=== PATIENT | male | born 1960 | race Caucasian/White ===

== ENCOUNTER 2021-09-03 08:45 | Inpatient (IN) | payer OTHER ==
[~2021-09-03] VITALS: Ht 177.8 cm; Wt 79.5 kg
[2021-09-03] MEDS ORDERED: SODIUM CHLORIDE 0.9% 1,000 ML IV ONE (10:15)
[2021-09-03 11:03] LABS: Basophils # (auto) 0 10 ^3/uL (0-0.2); Basophils % (auto) 0.5 % (0.0-2.0); Eosinophils # (auto) 0.1 10 ^3/uL (0-0.8); Eosinophils % (auto) 1.1 % (0.0-7.0); Hematocrit 33.7 % (41.0-53.0); Hemoglobin 11.7 g/dL (13.5-17.5); Lymphocytes # (auto) 0.9 10 ^3/uL (0.4-5.4); Lymphocytes % (auto) 10.4 % (10.0-50.0); Mean Corpuscular Hemoglobin 31.3 pg (28.0-32.0); Mean Corpuscular Hgb Conc. 34.8 g/dL (32.0-36.0); Mean Corpuscular Volume 89.8 fL (80.0-100.0); Monocytes # (auto) 0.6 10 ^3/uL (0-1.3); Monocytes % (auto) 6.4 % (0.0-12.0); Neutrophils # (auto) 7.2 10 ^3/uL (1.6-8.6); Neutrophils % (auto) 81.6 % (37.0-80.0); Nucleated Red Blood Cells % 0.1 %; Red Blood Cells 3.75 10^6/uL (4.5-5.90); Red Cell Distribution Width 13.1 % (11.8-14.3); White Blood Cell 8.9 10^3/uL (4.4-10.8)
[2021-09-03 11:22] LABS: Calcium 9.1 mg/dL (8.5-10.1); Potassium 3.5 mmol/L (3.5-5.1)
[2021-09-03 11:23] LABS: Albumin 3.1 g/dL (3.4-5.0); Magnesium 2.9 mg/dL (1.6-2.6)
[2021-09-03 11:30] LABS: BUN/Creatinine Ratio 9.2; Bilirubin, Total 0.3 mg/dL (0.2-1.0)
[2021-09-03] MEDS ORDERED: NITROGLYCERIN 0.4 MG SL TAB SL PRN (15:15)
[2021-09-03] MEDS ORDERED: BUMETANIDE 2.5mg/10ml (0.25 mg/ml) INJ IV ONE (15:15)
[2021-09-03] MEDS ORDERED: MORPHINE SULFATE INJECTION 2 MG/ML SYRG IV PRN (15:15)
[2021-09-03] MEDS ORDERED: MORPHINE SULFATE INJECTION 2 MG/ML SYRG IV ONE (15:45)
[2021-09-03] MEDS ORDERED: ONDANSETRON HCL 4 MG/2 ML VIAL IV ONE (15:45)
[2021-09-03] MEDS ORDERED: IPRATROPIUM BROM 0.5 MG/2.5ML INH SOL NEB ONE (17:00)
[2021-09-03] MEDS ORDERED: DEXTROSE (50%) 50ML SYRG IV PRN (17:00)
[2021-09-03] MEDS ORDERED: DOCUSATE SOD 100 MG CAP PO PRN (17:00)
[2021-09-03] MEDS ORDERED: NIFEdipine ER 30 MG TAB PO ONE (17:00)
[2021-09-03] MEDS ORDERED: LACTULOSE 20Gm/30ML SOLN PO PRN (17:00)
[2021-09-03] MEDS ORDERED: SUCRALFATE 1 GM/10 ML ORAL SUSP PO ONE (17:00)
[2021-09-03] MEDS ORDERED: PANTOPRAZOLE 40 MG/10 ML VIAL INJ IV ONE (17:00)
[2021-09-03] MEDS: ACCU-CHEK COMFORT CURVE STRIP VI SCH ×2 (17:00→22:00)
[2021-09-03] MEDS ORDERED: FOLIC ACID 1 MG TAB PO ONE (17:00)
[2021-09-03] MEDS ORDERED: ONDANSETRON HCL 4 MG/2 ML VIAL IV PRN (17:00)
[2021-09-03] MEDS ORDERED: MULTIPLE VITAMINS W/ MINERALS TAB PO ONE (17:00)
[2021-09-03] MEDS ORDERED: ACETAMINOPHEN 325 MG TAB PO PRN (17:00)
[2021-09-03] MEDS ORDERED: FERROUS SULFATE 325mg EC TAB PO ONE (17:00)
[2021-09-03] MEDS ORDERED: HYDROcodone-ACET 5/325MG TAB PO ONE (17:00)
[2021-09-03 17:27] LABS: Magnesium 2.6 mg/dL (1.6-2.6); Phosphorus 5.6 mg/dL (2.5-4.90)
[2021-09-03] MEDS: InsuLIN REG 1unit/0.01ml Soln (100units/ml) SC SCH ×2 (17:55→22:00)
[2021-09-03] MEDS ORDERED: IPRATROPIUM BROM 0.5 MG/2.5ML INH SOL NEB SCH (18:00)
[2021-09-03] MEDS: SUCRALFATE 1 GM/10 ML ORAL SUSP PO SCH ×2 (18:23→20:42)
[2021-09-03] MEDS: SEVELAMER 800 MG TAB PO SCH (18:25)
[2021-09-03] MEDS: FERROUS SULFATE 325mg EC TAB PO SCH (18:25)
[2021-09-03] MEDS ORDERED: IPRATROPIUM BROM 0.5 MG/2.5ML INH SOL NEB PRN (18:30)
[2021-09-03 20:00] VITALS: BP 179/94
[2021-09-03] MEDS: LORazepam 0.5 MG TAB PO PRN (20:00)
[2021-09-03] MEDS: levETIRAcetam 500 MG TAB PO SCH (20:42)
[2021-09-03] MEDS: ATORVASTATIN 20 MG TAB PO SCH (20:43)
[2021-09-03] MEDS: MORPHINE SULFATE INJECTION 2 MG/ML SYRG IV PRN (20:44)
[2021-09-03 20:52] LABS: Partial Thromboplastin Time 24.8 sec (23.6-33.0)
[2021-09-03 22:00] VITALS: BP 164/97
[2021-09-03] MEDS ORDERED: ACETYLCYSTEINE 10 %(100MG/ML) SOL 4ML NEB SCH (22:00)
[2021-09-03 23:22] VITALS: BP 159/82
[2021-09-04 00:46] VITALS: BP 159/82
[2021-09-04 04:54] VITALS: BP 158/61
[2021-09-04] MEDS: SUCRALFATE 1 GM/10 ML ORAL SUSP PO SCH ×4 (07:00→22:08)
[2021-09-04] MEDS: InsuLIN REG 1unit/0.01ml Soln (100units/ml) SC SCH ×4 (07:00→22:00)
[2021-09-04] MEDS: ACCU-CHEK COMFORT CURVE STRIP VI SCH ×4 (07:02→21:36)
[2021-09-04] MEDS: HYDROcodone-ACET 5/325MG TAB PO PRN ×3 (07:04→16:45)
[2021-09-04] MEDS: BUMETANIDE 2.5mg/10ml (0.25 mg/ml) INJ IV SCH ×2 (07:05→16:48)
[2021-09-04] MEDS: SEVELAMER 800 MG TAB PO SCH ×3 (08:00→17:20)
[2021-09-04] MEDS: FERROUS SULFATE 325mg EC TAB PO SCH ×3 (08:00→17:20)
[2021-09-04 09:00] VITALS: BP 145/70
[2021-09-04 09:22] LABS: Basophils # (auto) 0 10 ^3/uL (0-0.2); Basophils % (auto) 0.3 % (0.0-2.0); Eosinophils # (auto) 0.1 10 ^3/uL (0-0.8); Eosinophils % (auto) 0.9 % (0.0-7.0); Hematocrit 32.8 % (41.0-53.0); Hemoglobin 11.4 g/dL (13.5-17.5); Lymphocytes # (auto) 1.2 10 ^3/uL (0.4-5.4); Mean Corpuscular Hemoglobin 31.3 pg (28.0-32.0); Mean Corpuscular Hgb Conc. 34.8 g/dL (32.0-36.0); Mean Corpuscular Volume 89.8 fL (80.0-100.0); Monocytes # (auto) 0.6 10 ^3/uL (0-1.3); Monocytes % (auto) 4.8 % (0.0-12.0); Nucleated Red Blood Cells % 0.1 %; Red Blood Cells 3.65 10^6/uL (4.5-5.90); Red Cell Distribution Width 13.2 % (11.8-14.3)
[2021-09-04 09:25] LABS: INR 1.04 (0.9-1.15); Partial Thromboplastin Time 25.5 sec (23.6-33.0)
[2021-09-04 09:33] LABS: Albumin 3.1 g/dL (3.4-5.0); Magnesium 2.4 mg/dL (1.6-2.6); Potassium 3.6 mmol/L (3.5-5.1)
[2021-09-04 09:40] LABS: BUN/Creatinine Ratio 8.8; Bilirubin, Total 0.4 mg/dL (0.2-1.0); CRP High Sensitivity 1.46 mg/dL (< 0.3); Phosphorus 5.4 mg/dL (2.5-4.90); Total Protein 8.2 g/dL (6.4-8.2); Uric Acid 8.1 mg/dL (3.5-7.2)
[2021-09-04] MEDS: FOLIC ACID 1 MG TAB PO SCH (10:17)
[2021-09-04] MEDS: levETIRAcetam 500 MG TAB PO SCH ×2 (10:17→22:08)
[2021-09-04] MEDS: ASPirin 81 mg TAB PO SCH (10:17)
[2021-09-04] MEDS: PANTOPRAZOLE 40 MG/10 ML VIAL INJ IV SCH (10:17)
[2021-09-04] MEDS: THIAMINE HCL 100 MG TAB PO SCH (10:17)
[2021-09-04] MEDS: CHOLECALCIFEROL (VITD3) 2,000 UNIT CAP/TAB PO SCH (10:18)
[2021-09-04] MEDS: CYANOCOBALAMIN 500 MCG TAB PO SCH (10:18)
[2021-09-04] MEDS: ENOXAPARIN SOD 30 MG/0.3 ML SYRINGE SC SCH (10:18)
[2021-09-04] MEDS: NIFEdipine ER 30 MG TAB PO SCH (10:19)
[2021-09-04] MEDS: MULTIPLE VITAMINS W/ MINERALS TAB PO SCH (10:19)
[2021-09-04] MEDS: LORazepam 0.5 MG TAB PO PRN ×2 (11:50→20:25)
[2021-09-04 13:00] VITALS: BP 146/76
[2021-09-04] MEDS: PIPERACILLIN-TAZOB 2.25GM 50 ML IV SCH ×2 (13:00→16:45)
[2021-09-04] MEDS ORDERED: PIPERACILLIN-TAZOB 3.375GM 100 ML IV SCH (14:00)
[2021-09-04 17:00] VITALS: BP 149/72
[2021-09-04] MEDS ORDERED: diphenhdrAMINE HCL 25 MG CAP PO PRN (18:30)
[2021-09-04] MEDS: ATORVASTATIN 20 MG TAB PO SCH (22:08)
[2021-09-05] MEDS: HYDROcodone-ACET 5/325MG TAB PO PRN ×2 (00:23→04:46)
[2021-09-05] MEDS: PIPERACILLIN-TAZOB 2.25GM 50 ML IV SCH ×2 (04:46→19:34)
[2021-09-05 05:00] VITALS: BP 143/65
[2021-09-05] MEDS: ACCU-CHEK COMFORT CURVE STRIP VI SCH ×4 (05:57→21:43)
[2021-09-05] MEDS: InsuLIN REG 1unit/0.01ml Soln (100units/ml) SC SCH ×4 (05:58→21:43)
[2021-09-05] MEDS: BUMETANIDE 2.5mg/10ml (0.25 mg/ml) INJ IV SCH ×2 (06:05→19:36)
[2021-09-05] MEDS: SUCRALFATE 1 GM/10 ML ORAL SUSP PO SCH ×4 (06:05→21:50)
[2021-09-05 08:30] VITALS: BP 132/76
[2021-09-05] MEDS ORDERED: PIPERACILLIN-TAZOB 2.25GM 0.75 GM in D5W 5% 50 ML IV SCH (09:00)
[2021-09-05] MEDS ORDERED: SODIUM CHL 0.9% 1000 ML BAG XX ONE (11:30)
[2021-09-05] MEDS: PANTOPRAZOLE 40 MG/10 ML VIAL INJ IV SCH (11:31)
[2021-09-05] MEDS: FERROUS SULFATE 325mg EC TAB PO SCH ×3 (11:31→19:36)
[2021-09-05] MEDS: SEVELAMER 800 MG TAB PO SCH ×3 (11:31→19:36)
[2021-09-05] MEDS: FOLIC ACID 1 MG TAB PO SCH (11:31)
[2021-09-05] MEDS: ASPirin 81 mg TAB PO SCH (11:31)
[2021-09-05] MEDS: levETIRAcetam 500 MG TAB PO SCH ×2 (11:32→21:50)
[2021-09-05] MEDS: THIAMINE HCL 100 MG TAB PO SCH (11:32)
[2021-09-05] MEDS: MULTIPLE VITAMINS W/ MINERALS TAB PO SCH (11:32)
[2021-09-05] MEDS: CYANOCOBALAMIN 500 MCG TAB PO SCH (11:33)
[2021-09-05] MEDS: ENOXAPARIN SOD 30 MG/0.3 ML SYRINGE SC SCH (11:33)
[2021-09-05] MEDS: CHOLECALCIFEROL (VITD3) 2,000 UNIT CAP/TAB PO SCH (11:33)
[2021-09-05] MEDS: NIFEdipine ER 30 MG TAB PO SCH (11:33)
[2021-09-05 12:30] VITALS: BP 161/84
[2021-09-05 16:46] LABS: Hepatitis A Ab IgM Negative; Hepatitis B Core IgM Negative
[2021-09-05 16:50] LABS: Hepatitis C Antibody Positive (Negative)
[2021-09-05 17:00] VITALS: BP 156/81
[2021-09-05] MEDS ORDERED: LORazepam 2MG/ML-1ML VIAL IV PRN (21:15)
[2021-09-05] MEDS: ATORVASTATIN 20 MG TAB PO SCH (21:50)
[2021-09-05 22:00] VITALS: BP 148/80
[2021-09-06 05:00] VITALS: BP 145/67
[2021-09-06] MEDS: ACCU-CHEK COMFORT CURVE STRIP VI SCH ×4 (06:11→21:52)
[2021-09-06] MEDS: InsuLIN REG 1unit/0.01ml Soln (100units/ml) SC SCH ×4 (06:12→21:51)
[2021-09-06] MEDS: BUMETANIDE 2.5mg/10ml (0.25 mg/ml) INJ IV SCH ×2 (06:47→17:40)
[2021-09-06] MEDS: SUCRALFATE 1 GM/10 ML ORAL SUSP PO SCH ×4 (06:47→21:51)
[2021-09-06] MEDS: PIPERACILLIN-TAZOB 2.25GM 50 ML IV SCH ×2 (06:47→16:50)
[2021-09-06 07:53] LABS: Basophils # (auto) 0.1 10 ^3/uL (0-0.2); Basophils % (auto) 0.8 % (0.0-2.0); Eosinophils # (auto) 0.1 10 ^3/uL (0-0.8); Eosinophils % (auto) 1.2 % (0.0-7.0); Hemoglobin 11.5 g/dL (13.5-17.5); Lymphocytes # (auto) 1.2 10 ^3/uL (0.4-5.4); Lymphocytes % (auto) 13.9 % (10.0-50.0); Mean Corpuscular Hemoglobin 31.1 pg (28.0-32.0); Mean Corpuscular Hgb Conc. 34.8 g/dL (32.0-36.0); Mean Corpuscular Volume 89.6 fL (80.0-100.0); Monocytes # (auto) 0.6 10 ^3/uL (0-1.3); Neutrophils # (auto) 6.8 10 ^3/uL (1.6-8.6); Neutrophils % (auto) 77.1 % (37.0-80.0); Nucleated Red Blood Cells % 0.1 %; Red Blood Cells 3.69 10^6/uL (4.5-5.90); Red Cell Distribution Width 13.1 % (11.8-14.3); White Blood Cell 8.8 10^3/uL (4.4-10.8)
[2021-09-06] MEDS: FERROUS SULFATE 325mg EC TAB PO SCH ×3 (08:00→17:40)
[2021-09-06] MEDS: SEVELAMER 800 MG TAB PO SCH ×3 (08:00→17:40)
[2021-09-06 08:06] LABS: Calcium 9.1 mg/dL (8.5-10.1)
[2021-09-06 08:10] LABS: BUN/Creatinine Ratio 7.2
[2021-09-06 09:00] VITALS: BP 182/87
[2021-09-06] MEDS: ASPirin 81 mg TAB PO SCH (10:16)
[2021-09-06] MEDS: MULTIPLE VITAMINS W/ MINERALS TAB PO SCH (10:16)
[2021-09-06] MEDS: THIAMINE HCL 100 MG TAB PO SCH (10:16)
[2021-09-06] MEDS: PANTOPRAZOLE 40 MG/10 ML VIAL INJ IV SCH (10:16)
[2021-09-06] MEDS: FOLIC ACID 1 MG TAB PO SCH (10:16)
[2021-09-06] MEDS: levETIRAcetam 500 MG TAB PO SCH ×2 (10:16→21:51)
[2021-09-06] MEDS: CYANOCOBALAMIN 500 MCG TAB PO SCH (10:17)
[2021-09-06] MEDS: NIFEdipine ER 30 MG TAB PO SCH (10:17)
[2021-09-06] MEDS: CHOLECALCIFEROL (VITD3) 2,000 UNIT CAP/TAB PO SCH (10:17)
[2021-09-06] MEDS: ENOXAPARIN SOD 30 MG/0.3 ML SYRINGE SC SCH (10:17)
[2021-09-06] MEDS ORDERED: LACTULOSE 20Gm/30ML SOLN PO ONE (12:30)
[2021-09-06 13:00] VITALS: BP 189/99
[2021-09-06] MEDS: hydrALAZINE HCL 20 MG/ML VL IV PRN (13:49)
[2021-09-06 16:13] LABS: Folate (Folic Acid) > 24.0 ng/mL (5.38-24)
[2021-09-06] MEDS: MORPHINE SULFATE INJECTION 2 MG/ML SYRG IV PRN (21:39)
[2021-09-06] MEDS: ATORVASTATIN 20 MG TAB PO SCH (21:51)
[2021-09-06 22:24] VITALS: BP 156/88
[2021-09-06 22:25] VITALS: BP 156/88
[2021-09-07] VITALS (7 sets, daily range): BP systolic 149–171; BP diastolic 76–87
[2021-09-07] MEDS: hydrALAZINE HCL 20 MG/ML VL IV PRN (05:08)
[2021-09-07] MEDS: PIPERACILLIN-TAZOB 2.25GM 50 ML IV SCH ×2 (05:12→18:12)
[2021-09-07] MEDS: BUMETANIDE 2.5mg/10ml (0.25 mg/ml) INJ IV SCH ×2 (06:07→18:12)
[2021-09-07] MEDS: InsuLIN REG 1unit/0.01ml Soln (100units/ml) SC SCH ×4 (06:50→21:35)
[2021-09-07] MEDS: SUCRALFATE 1 GM/10 ML ORAL SUSP PO SCH ×4 (06:50→21:19)
[2021-09-07] MEDS: ACCU-CHEK COMFORT CURVE STRIP VI SCH ×4 (06:52→21:34)
[2021-09-07 07:08] LABS: Anion Gap 13 (5-15); Blood Urea Nitrogen 39 mg/dL (7-18); Carbon Dioxide 21 mmol/L (21-32); Chloride 99 mmol/L (98-107); Glucose 104 mg/dL (74-106); Potassium 3.6 mmol/L (3.5-5.1); Sodium 133 mmol/L (136-145)
[2021-09-07 07:10] LABS: BUN/Creatinine Ratio 7.1; GFR African American 14 mL/min; GFR Non-African American 11 mL/min
[2021-09-07] MEDS: FERROUS SULFATE 325mg EC TAB PO SCH ×3 (08:39→18:11)
[2021-09-07] MEDS: SEVELAMER 800 MG TAB PO SCH ×3 (08:39→18:11)
[2021-09-07] MEDS: HYDROcodone-ACET 5/325MG TAB PO PRN (08:40)
[2021-09-07] MEDS: PANTOPRAZOLE 40 MG/10 ML VIAL INJ IV SCH (08:41)
[2021-09-07] MEDS ORDERED: HALOPERIDOL LACTATE 5 MG/ML INJ VIAL IM PRN (09:15)
[2021-09-07] MEDS: ASPirin 81 mg TAB PO SCH (10:46)
[2021-09-07] MEDS: FOLIC ACID 1 MG TAB PO SCH (10:46)
[2021-09-07] MEDS: THIAMINE HCL 100 MG TAB PO SCH (10:47)
[2021-09-07] MEDS: levETIRAcetam 500 MG TAB PO SCH ×2 (10:48→21:20)
[2021-09-07] MEDS: MULTIPLE VITAMINS W/ MINERALS TAB PO SCH (10:48)
[2021-09-07] MEDS: CYANOCOBALAMIN 500 MCG TAB PO SCH (10:49)
[2021-09-07] MEDS: CHOLECALCIFEROL (VITD3) 2,000 UNIT CAP/TAB PO SCH (10:49)
[2021-09-07] MEDS: NIFEdipine ER 30 MG TAB PO SCH (10:49)
[2021-09-07] MEDS: ENOXAPARIN SOD 30 MG/0.3 ML SYRINGE SC SCH (10:50)
[2021-09-07] MEDS: LACTULOSE 20Gm/30ML SOLN PO SCH (10:51)
[2021-09-07] MEDS: ATORVASTATIN 20 MG TAB PO SCH (21:20)
[2021-09-08] MEDS: LORazepam 0.5 MG TAB PO PRN (03:36)
[2021-09-08] MEDS: PIPERACILLIN-TAZOB 2.25GM 50 ML IV SCH (05:20)
[2021-09-08] MEDS: BUMETANIDE 2.5mg/10ml (0.25 mg/ml) INJ IV SCH (05:27)
[2021-09-08] MEDS: SUCRALFATE 1 GM/10 ML ORAL SUSP PO SCH ×2 (06:59→11:30)
[2021-09-08] MEDS: InsuLIN REG 1unit/0.01ml Soln (100units/ml) SC SCH ×2 (07:00→11:30)
[2021-09-08] MEDS: ACCU-CHEK COMFORT CURVE STRIP VI SCH ×2 (07:09→11:40)
[2021-09-08 09:00] VITALS: BP 146/61
[2021-09-08] MEDS: NIFEdipine ER 30 MG TAB PO SCH (10:00)
[2021-09-08] MEDS: LACTULOSE 20Gm/30ML SOLN PO SCH (10:00)
[2021-09-08] MEDS: FERROUS SULFATE 325mg EC TAB PO SCH ×2 (10:07→12:00)
[2021-09-08] MEDS: ASPirin 81 mg TAB PO SCH (10:08)
[2021-09-08] MEDS: SEVELAMER 800 MG TAB PO SCH ×2 (10:08→12:00)
[2021-09-08] MEDS: FOLIC ACID 1 MG TAB PO SCH (10:08)
[2021-09-08] MEDS: PANTOPRAZOLE 40 MG/10 ML VIAL INJ IV SCH (10:08)
[2021-09-08] MEDS: levETIRAcetam 500 MG TAB PO SCH (10:09)
[2021-09-08] MEDS: THIAMINE HCL 100 MG TAB PO SCH (10:09)
[2021-09-08] MEDS: MULTIPLE VITAMINS W/ MINERALS TAB PO SCH (10:09)
[2021-09-08] MEDS: CHOLECALCIFEROL (VITD3) 2,000 UNIT CAP/TAB PO SCH (10:10)
[2021-09-08] MEDS: CYANOCOBALAMIN 500 MCG TAB PO SCH (10:10)
[2021-09-08] MEDS: ENOXAPARIN SOD 30 MG/0.3 ML SYRINGE SC SCH (10:11)
[2021-09-08] MEDS: HYDROcodone-ACET 5/325MG TAB PO PRN (10:12)
[2021-09-08 10:17] LABS: Potassium 3.4 mmol/L (3.5-5.1)
[2021-09-08 10:35] LABS: BUN/Creatinine Ratio 6.9; Calcium 8.9 mg/dL (8.5-10.1)
== END 2021-09-08 16:25 | DRG 682 ==
LOC: EDBD 08:45 → ER 08:45 → TELE-WESTW 15:04
PROVIDERS: ADMIT Hospitalist; ATTEND Internal Medicine
PROC: 05H933Z Insertion of Infusion Device into Right Brachial Vein, Percutaneous Approach (ICD-10-PCS; 2021-09-03)
PROC: B54MZZA Ultrasonography of Right Upper Extremity Veins, Guidance (ICD-10-PCS; 2021-09-03)
PROC: 5A1D70Z Performance of Urinary Filtration, Intermittent, Less than 6 Hours Per Day (ICD-10-PCS; principal; 2021-09-05)
PROC: 05H933Z Insertion of Infusion Device into Right Brachial Vein, Percutaneous Approach (ICD-10-PCS; 2021-09-05)
PROC: B54MZZA Ultrasonography of Right Upper Extremity Veins, Guidance (ICD-10-PCS; 2021-09-05)
PROC: 5A1D70Z Performance of Urinary Filtration, Intermittent, Less than 6 Hours Per Day (ICD-10-PCS; 2021-09-08)
DX: I12.0 Hypertensive chronic kidney disease with stage 5 chronic kidney disease or end stage renal disease (principal); G93.41 Metabolic encephalopathy; N18.6 End stage renal disease; E44.1 Mild protein-calorie malnutrition; I16.9 Hypertensive crisis, unspecified; I69.354 Hemiplegia and hemiparesis following cerebral infarction affecting left non-dominant side; D63.8 Anemia in other chronic diseases classified elsewhere; D69.6 Thrombocytopenia, unspecified; B19.20 Unspecified viral hepatitis C without hepatic coma; D63.1 Anemia in chronic kidney disease; E21.3 Hyperparathyroidism, unspecified; Z20.822 Contact with and (suspected) exposure to COVID-19; F17.210 Nicotine dependence, cigarettes, uncomplicated; E11.22 Type 2 diabetes mellitus with diabetic chronic kidney disease; E66.01 Morbid (severe) obesity due to excess calories; Z68.26 Body mass index [BMI] 26.0-26.9, adult; E78.5 Hyperlipidemia, unspecified; F32.9 Major depressive disorder, single episode, unspecified; G40.909 Epilepsy, unspecified, not intractable, without status epilepticus; J44.9 Chronic obstructive pulmonary disease, unspecified; K21.9 Gastro-esophageal reflux disease without esophagitis; K29.70 Gastritis, unspecified, without bleeding; K59.00 Constipation, unspecified; M89.8X9 Other specified disorders of bone, unspecified site; Z99.2 Dependence on renal dialysis; Z79.82 Long term (current) use of aspirin; Z79.899 Other long term (current) drug therapy; Z89.512 Acquired absence of left leg below knee; Z89.612 Acquired absence of left leg above knee
CPT/HCPCS: 36415; 71045; 80048; 80053; 80061; 80074; 82607; 82728; 82746; 82962; 83036; 83615; 83690; 83735; 83880; 83970; 84100; 84443; 84484; 84550; 85025; 85379; 85610; 85652; 85730; 86141; 87040; 90935; 93005; 96361; 96374; 96375; C9113; G0378; J1642; J1815; J2405; J2543

== ENCOUNTER 2021-09-11 20:31 | Inpatient (IN) | payer OTHER ==
[~2021-09-11] VITALS: Ht 177.8 cm; Wt 75.7 kg
[2021-09-11] MEDS ORDERED: ONDANSETRON HCL 4 MG/2 ML VIAL IV ONE (21:15)
[2021-09-11] MEDS ORDERED: MORPHINE SULFATE 4 MG/ML SYR/VIAL IV ONE (21:15)
[2021-09-11 22:09] LABS: Basophils # (auto) 0.1 10 ^3/uL (0-0.2); Basophils % (auto) 0.5 % (0.0-2.0); Eosinophils # (auto) 0.2 10 ^3/uL (0-0.8); Eosinophils % (auto) 1.4 % (0.0-7.0); Hematocrit 33.6 % (41.0-53.0); Hemoglobin 11.4 g/dL (13.5-17.5); Lymphocytes % (auto) 8.8 % (10.0-50.0); Mean Corpuscular Hemoglobin 30.6 pg (28.0-32.0); Mean Corpuscular Hgb Conc. 33.9 g/dL (32.0-36.0); Mean Corpuscular Volume 90.1 fL (80.0-100.0); Monocytes # (auto) 0.5 10 ^3/uL (0-1.3); Monocytes % (auto) 4.5 % (0.0-12.0); Neutrophils % (auto) 84.8 % (37.0-80.0); Red Blood Cells 3.73 10^6/uL (4.5-5.90); White Blood Cell 11.8 10^3/uL (4.4-10.8)
[2021-09-11 22:44] LABS: Albumin 3.1 g/dL (3.4-5.0); BUN/Creatinine Ratio 6.8; Potassium 3.2 mmol/L (3.5-5.1)
[2021-09-11 22:49] LABS: Bilirubin, Total 0.2 mg/dL (0.2-1.0); Total Protein 7.8 g/dL (6.4-8.2)
[2021-09-11] MEDS ORDERED: DEXTROSE (50%) 50ML SYRG IV PRN (23:15)
[2021-09-11] MEDS ORDERED: MORPHINE SULFATE INJECTION 2 MG/ML SYRG IV PRN (23:15)
[2021-09-11] MEDS ORDERED: ONDANSETRON HCL 4 MG/2 ML VIAL IV PRN (23:15)
[2021-09-11] MEDS ORDERED: NITROGLYCERIN 0.4 MG SL TAB SL PRN (23:15)
[2021-09-12] MEDS: ACCU-CHEK COMFORT CURVE STRIP VI SCH ×5 (00:01→21:36)
[2021-09-12] MEDS: ATORVASTATIN 20 MG TAB PO SCH ×2 (00:05→21:33)
[2021-09-12] MEDS: InsuLIN REG 1unit/0.01ml Soln (100units/ml) SC SCH ×5 (00:06→21:26)
[2021-09-12] MEDS: levETIRAcetam 500 MG TAB PO SCH ×3 (00:06→21:33)
[2021-09-12 01:28] LABS: BUN/Creatinine Ratio 7.3; Calcium 9.2 mg/dL (8.5-10.1); Potassium 3.2 mmol/L (3.5-5.1)
[2021-09-12] MEDS: SEVELAMER 800 MG TAB PO SCH ×3 (08:12→16:43)
[2021-09-12 09:22] LABS: Basophils # (auto) 0.1 10 ^3/uL (0-0.2); Eosinophils # (auto) 0.2 10 ^3/uL (0-0.8); Eosinophils % (auto) 2.2 % (0.0-7.0); Hematocrit 32.9 % (41.0-53.0); Hemoglobin 11.5 g/dL (13.5-17.5); Lymphocytes # (auto) 1.3 10 ^3/uL (0.4-5.4); Lymphocytes % (auto) 11.8 % (10.0-50.0); Mean Corpuscular Hemoglobin 31.6 pg (28.0-32.0); Mean Corpuscular Hgb Conc. 35.1 g/dL (32.0-36.0); Mean Corpuscular Volume 90.1 fL (80.0-100.0); Monocytes # (auto) 0.7 10 ^3/uL (0-1.3); Monocytes % (auto) 5.9 % (0.0-12.0); Neutrophils # (auto) 8.8 10 ^3/uL (1.6-8.6); Neutrophils % (auto) 79.1 % (37.0-80.0); Nucleated Red Blood Cells % 0.1 %; Red Blood Cells 3.65 10^6/uL (4.5-5.90); White Blood Cell 11.1 10^3/uL (4.4-10.8)
[2021-09-12 10:20] VITALS: BP 151/80
[2021-09-12] MEDS: ASPirin 81 mg TAB PO SCH (11:22)
[2021-09-12] MEDS: FOLIC ACID 1 MG TAB PO SCH (11:22)
[2021-09-12] MEDS: FUROSEMIDE 40 MG TAB PO SCH (11:23)
[2021-09-12] MEDS: amLODIPine BESYLATE 5 MG TAB PO SCH (11:24)
[2021-09-12 11:26] VITALS: BP 151/80
[2021-09-12 12:30] VITALS: BP 174/92
[2021-09-12] MEDS: cloNIDine HCL 0.1 MG TAB PO PRN (13:51)
[2021-09-12 16:54] VITALS: BP 139/82
[2021-09-12] MEDS: ACETAMINOPHEN 325 MG TAB PO PRN (20:15)
[2021-09-12] MEDS: TEMAZEPAM 15 MG CAP PO PRN (21:36)
[2021-09-12 22:00] VITALS: BP 181/74
[2021-09-13] MEDS: cloNIDine HCL 0.1 MG TAB PO PRN (01:55)
[2021-09-13 05:00] VITALS: BP 162/75
[2021-09-13 06:04] LABS: Basophils # (auto) 0 10 ^3/uL (0-0.2); Basophils % (auto) 0.5 % (0.0-2.0); Eosinophils # (auto) 0.2 10 ^3/uL (0-0.8); Eosinophils % (auto) 1.9 % (0.0-7.0); Hematocrit 31.5 % (41.0-53.0); Hemoglobin 10.7 g/dL (13.5-17.5); Lymphocytes # (auto) 1.5 10 ^3/uL (0.4-5.4); Lymphocytes % (auto) 17.9 % (10.0-50.0); Mean Corpuscular Volume 91.1 fL (80.0-100.0); Monocytes # (auto) 0.6 10 ^3/uL (0-1.3); Monocytes % (auto) 6.9 % (0.0-12.0); Neutrophils # (auto) 6.1 10 ^3/uL (1.6-8.6); Neutrophils % (auto) 72.8 % (37.0-80.0); Red Blood Cells 3.45 10^6/uL (4.5-5.90); White Blood Cell 8.3 10^3/uL (4.4-10.8)
[2021-09-13] MEDS: ACCU-CHEK COMFORT CURVE STRIP VI SCH ×4 (06:18→21:27)
[2021-09-13] MEDS: InsuLIN REG 1unit/0.01ml Soln (100units/ml) SC SCH ×4 (06:18→21:34)
[2021-09-13 06:36] LABS: BUN/Creatinine Ratio 7.8; Calcium 8.6 mg/dL (8.5-10.1); Potassium 3.1 mmol/L (3.5-5.1)
[2021-09-13] MEDS ORDERED: SODIUM CHL 0.9% 1000 ML BAG XX ONE (07:00)
[2021-09-13] MEDS: SEVELAMER 800 MG TAB PO SCH ×3 (08:00→17:18)
[2021-09-13] MEDS: ACETAMINOPHEN 325 MG TAB PO PRN ×3 (08:39→22:08)
[2021-09-13 09:00] VITALS: BP 135/75
[2021-09-13] MEDS ORDERED: POTASSIUM CHL 20 Meq TABLET PO ONE (11:15)
[2021-09-13] MEDS ORDERED: ADENOSINE 61 MG in GIVE UN-DILUTED 0 ML IV STA (11:24)
[2021-09-13 12:00] VITALS: BP 168/85
[2021-09-13] MEDS: levETIRAcetam 500 MG TAB PO SCH ×2 (12:52→21:27)
[2021-09-13] MEDS: ASPirin 81 mg TAB PO SCH (12:52)
[2021-09-13] MEDS: FOLIC ACID 1 MG TAB PO SCH (12:52)
[2021-09-13] MEDS: FUROSEMIDE 40 MG TAB PO SCH (12:56)
[2021-09-13] MEDS: amLODIPine BESYLATE 5 MG TAB PO SCH (12:56)
[2021-09-13 17:20] VITALS: BP 130/65
[2021-09-13] MEDS: ATORVASTATIN 20 MG TAB PO SCH (21:26)
[2021-09-13] MEDS: TEMAZEPAM 15 MG CAP PO PRN (21:35)
[2021-09-13 22:00] VITALS: BP 155/71
[2021-09-14] MEDS: ACETAMINOPHEN 325 MG TAB PO PRN ×2 (04:44→11:14)
[2021-09-14] MEDS: ACCU-CHEK COMFORT CURVE STRIP VI SCH ×3 (06:08→17:00)
[2021-09-14] MEDS: InsuLIN REG 1unit/0.01ml Soln (100units/ml) SC SCH ×3 (06:09→17:00)
[2021-09-14] MEDS: SEVELAMER 800 MG TAB PO SCH ×3 (08:24→18:00)
[2021-09-14 09:07] VITALS: BP 195/105
[2021-09-14 09:44] LABS: BUN/Creatinine Ratio 7.2; Calcium 8.9 mg/dL (8.5-10.1)
[2021-09-14] MEDS: FOLIC ACID 1 MG TAB PO SCH (10:13)
[2021-09-14] MEDS: ASPirin 81 mg TAB PO SCH (10:13)
[2021-09-14] MEDS: FUROSEMIDE 40 MG TAB PO SCH (10:13)
[2021-09-14] MEDS: amLODIPine BESYLATE 5 MG TAB PO SCH (10:14)
[2021-09-14] MEDS: levETIRAcetam 500 MG TAB PO SCH (10:15)
[2021-09-14] MEDS: cloNIDine HCL 0.1 MG TAB PO PRN (11:14)
[2021-09-14 13:00] VITALS: BP 179/79
[2021-09-14] MEDS ORDERED: ASPI1CHW15 PO (13:46)
[2021-09-14] MEDS ORDERED: ATO40T PO (13:46)
[2021-09-14] MEDS ORDERED: AMLO-496 PO (13:46)
[2021-09-14] MEDS ORDERED: KEP500T PO (13:46)
[2021-09-14] MEDS ORDERED: FURO80TA3 PO (13:46)
[2021-09-14] MEDS ORDERED: ALPR0.25 PO (13:46)
[2021-09-14 17:00] VITALS: BP 158/82
[2021-09-14 17:18] VITALS: BP 158/82
== END 2021-09-14 18:30 | disposition home health service (06) | DRG 313 ==
LOC: EDBD 20:31 → ER 20:33 → TELE 23:07 → TELE-EAST 09-12 10:27
PROVIDERS: ADMIT Nurse Practitioner; ATTEND Internal Medicine Geriatric Medicine
PROC: 5A1D70Z Performance of Urinary Filtration, Intermittent, Less than 6 Hours Per Day (ICD-10-PCS; principal; 2021-09-13)
DX: R07.89 Other chest pain (principal); N18.6 End stage renal disease; I69.354 Hemiplegia and hemiparesis following cerebral infarction affecting left non-dominant side; I25.110 Atherosclerotic heart disease of native coronary artery with unstable angina pectoris; I12.0 Hypertensive chronic kidney disease with stage 5 chronic kidney disease or end stage renal disease; E03.9 Hypothyroidism, unspecified; E78.5 Hyperlipidemia, unspecified; F12.90 Cannabis use, unspecified, uncomplicated; F17.210 Nicotine dependence, cigarettes, uncomplicated; D63.1 Anemia in chronic kidney disease; E87.6 Hypokalemia; E11.22 Type 2 diabetes mellitus with diabetic chronic kidney disease; E11.51 Type 2 diabetes mellitus with diabetic peripheral angiopathy without gangrene; Z20.822 Contact with and (suspected) exposure to COVID-19; Z99.2 Dependence on renal dialysis; Z89.512 Acquired absence of left leg below knee
CPT/HCPCS: 36415; 71045; 78452; 80048; 80053; 82962; 83880; 84484; 85025; 85379; 87081; 87340; 90935; 93005; 93017; 93306; 96374; 96375; G0378; J0153; J1642; J1815; J2405

== ENCOUNTER 2021-09-22 18:01 | Emergency (ER) | payer OTHER ==
[~2021-09-22] VITALS: Ht 175.3 cm; Wt 95.3 kg
[~2021-09-22 18:01] MED LIST: ALPR0.25 PO; AMLO-496 PO; ASPI1CHW15 PO; ATO40T PO; FURO80TA3 PO; KEP500T PO
[2021-09-22 19:48] LABS: Basophils # (auto) 0.1 10 ^3/uL (0-0.2); Basophils % (auto) 0.6 % (0.0-2.0); Eosinophils # (auto) 0.1 10 ^3/uL (0-0.8); Eosinophils % (auto) 0.8 % (0.0-7.0); Hematocrit 32.9 % (41.0-53.0); Hemoglobin 11.1 g/dL (13.5-17.5); Lymphocytes # (auto) 1.3 10 ^3/uL (0.4-5.4); Lymphocytes % (auto) 10.3 % (10.0-50.0); Mean Corpuscular Hgb Conc. 33.8 g/dL (32.0-36.0); Mean Corpuscular Volume 88.8 fL (80.0-100.0); Monocytes # (auto) 0.6 10 ^3/uL (0-1.3); Monocytes % (auto) 4.9 % (0.0-12.0); Neutrophils # (auto) 10.3 10 ^3/uL (1.6-8.6); Neutrophils % (auto) 83.4 % (37.0-80.0); Nucleated Red Blood Cells % 0.1 %; Red Blood Cells 3.71 10^6/uL (4.5-5.90); Red Cell Distribution Width 13.1 % (11.8-14.3); White Blood Cell 12.4 10^3/uL (4.4-10.8)
[2021-09-22 20:07] LABS: Albumin 3.2 g/dL (3.4-5.0); BUN/Creatinine Ratio 8.9; Calcium 8.9 mg/dL (8.5-10.1); Potassium 3.8 mmol/L (3.5-5.1)
[2021-09-22 20:10] LABS: Bilirubin, Total 0.3 mg/dL (0.2-1.0); Total Protein 8.3 g/dL (6.4-8.2)
[2021-09-22] MEDS ORDERED: PIPERACILLIN-TAZOB 3.375GM 100 ML IV ONE (20:15)
[2021-09-23] MEDS ORDERED: LORazepam 2MG/ML-1ML VIAL IV ONE (02:30)
[2021-09-23 10:39] VITALS: BP 128/58
== END 2021-09-23 10:36 | disposition home or self-care (01) ==
LOC: ER 18:01 → EDUNIT# 18:01 → EDBD 18:01 → ER 09-23 10:36
DX: E11.22 Type 2 diabetes mellitus with diabetic chronic kidney disease (principal); I12.0 Hypertensive chronic kidney disease with stage 5 chronic kidney disease or end stage renal disease; N18.6 End stage renal disease; D63.1 Anemia in chronic kidney disease; E78.5 Hyperlipidemia, unspecified; F17.210 Nicotine dependence, cigarettes, uncomplicated; F12.10 Cannabis abuse, uncomplicated; D72.829 Elevated white blood cell count, unspecified; Z99.2 Dependence on renal dialysis; Z86.73 Personal history of transient ischemic attack (TIA), and cerebral infarction without residual deficits
CPT/HCPCS: 36415; 71045; 80053; 82140; 83735; 84484; 85025; 93005; 96365; 96366; 96375; 99285; J2060; J2543

== ENCOUNTER 2021-11-21 11:10 | Inpatient (IN) | payer OTHER ==
[~2021-11-21] VITALS: Ht 177.8 cm; Wt 68.0 kg
[2021-11-21] MEDS ORDERED: LORazepam 2MG/ML-1ML VIAL IM ONE (14:45)
[2021-11-21 15:22] LABS: Albumin 2.7 g/dL (3.4-5.0); Calcium 9.4 mg/dL (8.5-10.1); Potassium 4.2 mmol/L (3.5-5.1)
[2021-11-21 15:25] LABS: BUN/Creatinine Ratio 10.1; Bilirubin, Total 0.6 mg/dL (0.2-1.0); Total Protein 8.7 g/dL (6.4-8.2)
[2021-11-21 15:42] LABS: Basophils # (auto) 0.1 10 ^3/uL (0-0.2); Basophils % (auto) 0.4 % (0.0-2.0); Eosinophils # (auto) 0 10 ^3/uL (0-0.8); Eosinophils % (auto) 0.2 % (0.0-7.0); Hematocrit 30.7 % (41.0-53.0); Hemoglobin 10.2 g/dL (13.5-17.5); Lymphocytes # (auto) 0.2 10 ^3/uL (0.4-5.4); Lymphocytes % (auto) 1.5 % (10.0-50.0); Mean Corpuscular Hemoglobin 28.5 pg (28.0-32.0); Mean Corpuscular Hgb Conc. 33.2 g/dL (32.0-36.0); Mean Corpuscular Volume 85.9 fL (80.0-100.0); Monocytes # (auto) 0.4 10 ^3/uL (0-1.3); Neutrophils # (auto) 12.7 10 ^3/uL (1.6-8.6); Neutrophils % (auto) 94.9 % (37.0-80.0); Red Blood Cells 3.58 10^6/uL (4.5-5.90); Red Cell Distribution Width 14.1 % (11.8-14.3); White Blood Cell 13.4 10^3/uL (4.4-10.8)
[2021-11-21] MEDS ORDERED: ACETAMINOPHEN 650 MG RECT SUPP PR ONE ×2 (15:45→19:45)
[2021-11-21] MEDS ORDERED: SODIUM CHLORIDE 0.9% 1,000 ML IVB ONE (15:45)
[2021-11-21 18:06] LABS: Alcohol, Urine < 3.0 mg/dL (0-10); Amphetamine Screen, Urine NEGATIVE (NEGATIVE); Barbiturate Scree,Urine NEGATIVE (NEGATIVE); Benzodiazephine Screen, Urine NEGATIVE (NEGATIVE); Cannabinoid Screen, Urine NEGATIVE (NEGATIVE); Cocaine Screen, Urine NEGATIVE (NEGATIVE); Opiate Scree,Urine POSITIVE (NEGATIVE); Phencyclidine Screen, Urine NEGATIVE (NEGATIVE)
[2021-11-21 18:07] LABS: Urine Bacteria FEW /hpf (None Seen); Urine Blood 2+ /uL (Negative); Urine Budding Yeast OCCASIONAL /hpf (None Seen); Urine Specific Gravity 1.014 (1.001-1.035); Urine WBC 137 /hpf (0 - 3)
[2021-11-21] MEDS ORDERED: MORPHINE SULFATE INJ 2 MG/ml SYRG IV PRN (19:15)
[2021-11-21] MEDS ORDERED: cefTRIAXone 1GM/50ML D5W 50 ML IV ONE (19:15)
[2021-11-21] MEDS ORDERED: NITROGLYCERIN 0.4 MG SL TAB SL PRN (19:15)
[2021-11-21] MEDS ORDERED: DEXTROSE (50%) 50ML SYRG IV PRN (20:00)
[2021-11-21 20:13] LABS: Cholesterol 92 mg/dL (< 200); HDL Cholesterol 24 mg/dL (40-59); LDL Cholesterol 62 mg/dL (< 100); Triglycerides 105 mg/dL (< 150)
[2021-11-21] MEDS: CLINDAMYCIN 300MG IV 50 ML IV SCH (22:15)
[2021-11-21] MEDS: HEPARIN SODIUM (PORCINE) 5000 UNITS/ML 1ML VIAL SC SCH (22:15)
[2021-11-22] MEDS: ACCU-CHEK COMFORT CURVE STRIP VI SCH ×4 (00:48→18:54)
[2021-11-22] MEDS: InsuLIN REG 1unit/0.01ml Soln (100units/ml) SC SCH ×4 (00:49→18:54)
[2021-11-22] MEDS ORDERED: HALOPERIDOL LACTATE 5 MG/ML INJ VIAL IM ONE (01:15)
[2021-11-22 05:01] LABS: Basophils # (auto) 0 10 ^3/uL (0-0.2); Basophils % (auto) 0.2 % (0.0-2.0); Eosinophils # (auto) 0 10 ^3/uL (0-0.8); Eosinophils % (auto) 0.1 % (0.0-7.0); Hematocrit 30.2 % (41.0-53.0); Hemoglobin 10.4 g/dL (13.5-17.5); Lymphocytes # (auto) 0.3 10 ^3/uL (0.4-5.4); Lymphocytes % (auto) 2.8 % (10.0-50.0); Mean Corpuscular Hemoglobin 29.4 pg (28.0-32.0); Mean Corpuscular Hgb Conc. 34.4 g/dL (32.0-36.0); Mean Corpuscular Volume 85.4 fL (80.0-100.0); Monocytes # (auto) 0.4 10 ^3/uL (0-1.3); Monocytes % (auto) 4.4 % (0.0-12.0); Neutrophils # (auto) 8.5 10 ^3/uL (1.6-8.6); Neutrophils % (auto) 92.5 % (37.0-80.0); Red Blood Cells 3.54 10^6/uL (4.5-5.90); Red Cell Distribution Width 14.4 % (11.8-14.3); White Blood Cell 9.2 10^3/uL (4.4-10.8)
[2021-11-22 05:12] LABS: Alanine Aminotransferase 31 U/L (16-61); Albumin 2.6 g/dL (3.4-5.0); Anion Gap 14 (5-15); Aspartate Aminotransferase 28 U/L (15-37); BUN/Creatinine Ratio 10.1; Blood Urea Nitrogen 65 mg/dL (7-18); Calcium 8.8 mg/dL (8.5-10.1); Carbon Dioxide 21 mmol/L (21-32); Chloride 104 mmol/L (98-107); GFR African American 11 mL/min; GFR Non-African American 9 mL/min; Glucose 172 mg/dL (74-106); Potassium 3.7 mmol/L (3.5-5.1); Sodium 139 mmol/L (136-145)
[2021-11-22 05:15] LABS: Alkaline Phosphatase 133 U/L (45-117); Bilirubin, Total 0.5 mg/dL (0.2-1.0)
[2021-11-22] MEDS: CLINDAMYCIN 300MG IV 50 ML IV SCH ×3 (06:40→21:43)
[2021-11-22] MEDS: cefTRIAXone 1GM/50ML D5W 50 ML IV SCH (08:38)
[2021-11-22] MEDS: HEPARIN SODIUM (PORCINE) 5000 UNITS/ML 1ML VIAL SC SCH ×2 (10:02→21:45)
[2021-11-22] MEDS ORDERED: VANCOMYCIN PER PHARMACY 0 MG IV SCH (12:00)
[2021-11-22] MEDS ORDERED: VANCOMYCIN 1GM/250ML 250 ML IV ONE (13:00)
[2021-11-22 15:37] LABS: INR 1.1 (0.9-1.15); Partial Thromboplastin Time 22.5 sec (23.6-33.0)
[2021-11-22 22:00] VITALS: BP 169/92
[2021-11-22] MEDS: MORPHINE SULFATE INJ 2 MG/ml SYRG IV PRN (22:09)
[2021-11-22] MEDS ORDERED: dilTIAZem 25 MG/5 ML VIAL IV ONE (23:15)
[2021-11-23] MEDS: ACCU-CHEK COMFORT CURVE STRIP VI SCH ×5 (00:08→23:43)
[2021-11-23 00:46] VITALS: BP 130/76
[2021-11-23 04:44] VITALS: BP 167/90
[2021-11-23] MEDS: InsuLIN REG 1unit/0.01ml Soln (100units/ml) SC SCH ×5 (06:00→23:43)
[2021-11-23] MEDS: CLINDAMYCIN 300MG IV 50 ML IV SCH (06:12)
[2021-11-23 06:15] LABS: Basophils # (auto) 0 10 ^3/uL (0-0.2); Basophils % (auto) 0.4 % (0.0-2.0); Eosinophils # (auto) 0 10 ^3/uL (0-0.8); Eosinophils % (auto) 0.5 % (0.0-7.0); Hematocrit 30.8 % (41.0-53.0); Hemoglobin 10.2 g/dL (13.5-17.5); Lymphocytes # (auto) 0.3 10 ^3/uL (0.4-5.4); Lymphocytes % (auto) 5.8 % (10.0-50.0); Mean Corpuscular Hemoglobin 28.7 pg (28.0-32.0); Mean Corpuscular Hgb Conc. 33.3 g/dL (32.0-36.0); Mean Corpuscular Volume 86.3 fL (80.0-100.0); Monocytes # (auto) 0.4 10 ^3/uL (0-1.3); Monocytes % (auto) 7.7 % (0.0-12.0); Neutrophils # (auto) 4.7 10 ^3/uL (1.6-8.6); Neutrophils % (auto) 85.6 % (37.0-80.0); Nucleated Red Blood Cells % 0.1 %; Red Blood Cells 3.57 10^6/uL (4.5-5.90); Red Cell Distribution Width 14.4 % (11.8-14.3); White Blood Cell 5.5 10^3/uL (4.4-10.8)
[2021-11-23 06:33] LABS: Potassium 3.6 mmol/L (3.5-5.1)
[2021-11-23 06:39] LABS: Albumin 2.6 g/dL (3.4-5.0); BUN/Creatinine Ratio 11.3; Calcium 9.1 mg/dL (8.5-10.1)
[2021-11-23 06:42] LABS: Bilirubin, Total 0.4 mg/dL (0.2-1.0); Total Protein 7.9 g/dL (6.4-8.2)
[2021-11-23 08:00] VITALS: BP 169/89
[2021-11-23] MEDS: HEPARIN SODIUM (PORCINE) 5000 UNITS/ML 1ML VIAL SC SCH ×2 (10:00→21:52)
[2021-11-23] MEDS: MORPHINE SULFATE INJ 2 MG/ml SYRG IV PRN ×2 (10:30→17:31)
[2021-11-23] MEDS ORDERED: VANCOMYCIN 1GM/250ML 250 ML IV ONE (11:00)
[2021-11-23] MEDS: cefTRIAXone 1GM/50ML D5W 50 ML IV SCH (11:00)
[2021-11-23 12:00] VITALS: BP 124/87
[2021-11-23] MEDS: LORazepam 2MG/ML-1ML VIAL IV PRN (13:28)
[2021-11-23 16:00] VITALS: BP 143/74
[2021-11-23 22:00] VITALS: BP 157/96
[2021-11-24 05:00] VITALS: BP 158/86
[2021-11-24] MEDS: ACCU-CHEK COMFORT CURVE STRIP VI SCH ×3 (06:11→18:00)
[2021-11-24] MEDS: InsuLIN REG 1unit/0.01ml Soln (100units/ml) SC SCH ×3 (06:12→18:00)
[2021-11-24] MEDS: cefTRIAXone 1GM/50ML D5W 50 ML IV SCH (09:00)
[2021-11-24 09:30] VITALS: BP 173/90
[2021-11-24] MEDS ORDERED: VANCOMYCIN 1GM/250ML 250 ML IV ONE (09:30)
[2021-11-24] MEDS: HEPARIN SODIUM (PORCINE) 5000 UNITS/ML 1ML VIAL SC SCH ×2 (10:00→22:31)
[2021-11-24] MEDS: LORazepam 2MG/ML-1ML VIAL IV PRN (11:07)
[2021-11-24 13:02] VITALS: BP 180/91
[2021-11-24 16:52] VITALS: BP 165/87
[2021-11-25] MEDS: InsuLIN REG 1unit/0.01ml Soln (100units/ml) SC SCH ×5 (06:00→23:56)
[2021-11-25] MEDS: ACCU-CHEK COMFORT CURVE STRIP VI SCH ×5 (06:23→23:55)
[2021-11-25] MEDS: cefTRIAXone 1GM/50ML D5W 50 ML IV SCH (09:00)
[2021-11-25 09:27] VITALS: BP 155/72
[2021-11-25] MEDS ORDERED: LORazepam 2MG/ML-1ML VIAL IM ONE (12:00)
[2021-11-25 12:30] VITALS: BP 167/90
[2021-11-25] MEDS: HEPARIN SODIUM (PORCINE) 5000 UNITS/ML 1ML VIAL SC SCH ×2 (15:04→23:57)
[2021-11-25 16:38] VITALS: BP 180/83
[2021-11-25] MEDS ORDERED: VANCOMYCIN 1GM/250ML 250 ML IV ONE (18:00)
[2021-11-25 21:33] VITALS: BP 188/87
[2021-11-26 05:29] VITALS: BP 191/92
[2021-11-26] MEDS: ACCU-CHEK COMFORT CURVE STRIP VI SCH ×4 (05:49→23:38)
[2021-11-26] MEDS: InsuLIN REG 1unit/0.01ml Soln (100units/ml) SC SCH ×4 (05:49→23:39)
[2021-11-26 09:00] VITALS: BP 151/88
[2021-11-26] MEDS: cefTRIAXone 1GM/50ML D5W 50 ML IV SCH (09:00)
[2021-11-26] MEDS: HEPARIN SODIUM (PORCINE) 5000 UNITS/ML 1ML VIAL SC SCH ×2 (10:00→21:34)
[2021-11-26] MEDS ORDERED: LINEZOLID 600MG/300ML 300 ML IV SCH (11:00)
[2021-11-26 12:39] VITALS: BP 172/88
[2021-11-26] MEDS: AMPICILLIN & SULBACTAM SODIUM 3 GM in SODIUM CHL 0.9% 100 ML IV SCH ×2 (13:42→14:29)
[2021-11-26 17:00] VITALS: BP 182/92
[2021-11-26] MEDS: LORazepam 2MG/ML-1ML VIAL IV PRN (21:33)
[2021-11-26 22:00] VITALS: BP 187/88
[2021-11-27] MEDS: InsuLIN REG 1unit/0.01ml Soln (100units/ml) SC SCH ×4 (06:00→23:46)
[2021-11-27] MEDS: ACCU-CHEK COMFORT CURVE STRIP VI SCH ×4 (06:10→23:46)
[2021-11-27 09:00] VITALS: BP 132/60
[2021-11-27] MEDS: MORPHINE SULFATE INJ 2 MG/ml SYRG IV PRN ×2 (09:51→22:11)
[2021-11-27] MEDS: HEPARIN SODIUM (PORCINE) 5000 UNITS/ML 1ML VIAL SC SCH ×2 (09:56→22:00)
[2021-11-27] MEDS ORDERED: NICOTINE 21MG/24 HR TOPICAL PATCH TD ONE (12:30)
[2021-11-27 13:00] VITALS: BP 186/81
[2021-11-27] MEDS: AMPICILLIN & SULBACTAM SODIUM 3 GM in SODIUM CHL 0.9% 100 ML IV SCH (13:21)
[2021-11-27] MEDS: cloNIDine HCL 0.1 MG TAB PO PRN (16:05)
[2021-11-27 17:00] VITALS: BP_SYST 150; BP_SYST 176; BP_DIAS 77; BP_DIAS 90
[2021-11-27 22:00] VITALS: BP 153/87
[2021-11-27] MEDS: DOCUSATE SOD 100 MG CAP PO SCH (22:10)
[2021-11-28 05:00] VITALS: BP 177/80
[2021-11-28] MEDS: InsuLIN REG 1unit/0.01ml Soln (100units/ml) SC SCH ×3 (05:39→18:00)
[2021-11-28] MEDS: ACCU-CHEK COMFORT CURVE STRIP VI SCH ×3 (05:39→18:46)
[2021-11-28] MEDS: cloNIDine HCL 0.1 MG TAB PO PRN (05:39)
[2021-11-28] MEDS: LORazepam 2MG/ML-1ML VIAL IV PRN ×2 (06:23→21:25)
[2021-11-28 06:54] LABS: Basophils # (auto) 0 10 ^3/uL (0-0.2); Basophils % (auto) 0.5 % (0.0-2.0); Eosinophils # (auto) 0.1 10 ^3/uL (0-0.8); Eosinophils % (auto) 0.9 % (0.0-7.0); Hematocrit 31.8 % (41.0-53.0); Hemoglobin 10.4 g/dL (13.5-17.5); Lymphocytes # (auto) 0.9 10 ^3/uL (0.4-5.4); Lymphocytes % (auto) 15.6 % (10.0-50.0); Mean Corpuscular Hemoglobin 29.1 pg (28.0-32.0); Mean Corpuscular Hgb Conc. 32.8 g/dL (32.0-36.0); Mean Corpuscular Volume 88.7 fL (80.0-100.0); Monocytes # (auto) 0.6 10 ^3/uL (0-1.3); Monocytes % (auto) 10.6 % (0.0-12.0); Neutrophils # (auto) 4.1 10 ^3/uL (1.6-8.6); Neutrophils % (auto) 72.4 % (37.0-80.0); Nucleated Red Blood Cells % 0.3 %; Red Blood Cells 3.58 10^6/uL (4.5-5.90); Red Cell Distribution Width 14.6 % (11.8-14.3); White Blood Cell 5.7 10^3/uL (4.4-10.8)
[2021-11-28] MEDS ORDERED: SODIUM CHL 0.9% 1000 ML BAG XX ONE (07:00)
[2021-11-28 07:10] LABS: Anion Gap 12 (5-15); BUN/Creatinine Ratio 11.5; Blood Urea Nitrogen 62 mg/dL (7-18); Carbon Dioxide 19 mmol/L (21-32); Chloride 104 mmol/L (98-107); GFR African American 14 mL/min; GFR Non-African American 12 mL/min; Glucose 112 mg/dL (74-106); Potassium 3.6 mmol/L (3.5-5.1); Sodium 135 mmol/L (136-145)
[2021-11-28 08:31] VITALS: BP 146/83
[2021-11-28] MEDS: DOCUSATE SOD 100 MG CAP PO SCH ×2 (09:25→21:25)
[2021-11-28] MEDS: NICOTINE 21MG/24 HR TOPICAL PATCH TD SCH (09:26)
[2021-11-28] MEDS: HEPARIN SODIUM (PORCINE) 5000 UNITS/ML 1ML VIAL SC SCH ×2 (10:06→21:34)
[2021-11-28 12:51] VITALS: BP 105/86
[2021-11-28] MEDS: AMPICILLIN & SULBACTAM SODIUM 3 GM in SODIUM CHL 0.9% 100 ML IV SCH (14:48)
[2021-11-28 17:12] VITALS: BP 118/95
[2021-11-28] MEDS: MORPHINE SULFATE INJ 2 MG/ml SYRG IV PRN (19:29)
[2021-11-28 22:00] VITALS: BP 156/71
[2021-11-29] MEDS: ACCU-CHEK COMFORT CURVE STRIP VI SCH ×4 (00:01→17:02)
[2021-11-29 05:06] VITALS: BP 165/94
[2021-11-29] MEDS: cloNIDine HCL 0.1 MG TAB PO PRN (05:32)
[2021-11-29] MEDS: InsuLIN REG 1unit/0.01ml Soln (100units/ml) SC SCH ×4 (06:00→17:02)
[2021-11-29 06:36] LABS: Albumin 2.9 g/dL (3.4-5.0); BUN/Creatinine Ratio 9.3; Calcium 8.3 mg/dL (8.5-10.1); Potassium 3.6 mmol/L (3.5-5.1)
[2021-11-29 06:37] LABS: Bilirubin, Total 0.4 mg/dL (0.2-1.0)
[2021-11-29 08:56] VITALS: BP 146/45
[2021-11-29 09:02] VITALS: BP 164/70
[2021-11-29] MEDS: DOCUSATE SOD 100 MG CAP PO SCH ×2 (10:34→21:16)
[2021-11-29] MEDS: NICOTINE 21MG/24 HR TOPICAL PATCH TD SCH (10:35)
[2021-11-29] MEDS: HEPARIN SODIUM (PORCINE) 5000 UNITS/ML 1ML VIAL SC SCH ×2 (10:40→21:15)
[2021-11-29 12:42] VITALS: BP 159/80
[2021-11-29] MEDS: AMPICILLIN & SULBACTAM SODIUM 3 GM in SODIUM CHL 0.9% 100 ML IV SCH (12:52)
[2021-11-29 16:35] VITALS: BP 149/78
[2021-11-29] MEDS ORDERED: VANCOMYCIN 500 MG in D5W 5% 100 ML IV ONE (17:00)
[2021-11-29] MEDS ORDERED: HEPARIN SODIUM (PORCINE) 5000 UNITS/ML 1ML VIAL ONE (21:03)
[2021-11-29] MEDS: MORPHINE SULFATE INJ 2 MG/ml SYRG IV PRN (21:24)
[2021-11-29 22:00] VITALS: BP_SYST 159; BP_DIAS 70; BP_DIAS 81
[2021-11-30] MEDS: ACCU-CHEK COMFORT CURVE STRIP VI SCH ×4 (00:23→19:03)
[2021-11-30] MEDS: MORPHINE SULFATE INJ 2 MG/ml SYRG IV PRN ×4 (00:25→23:09)
[2021-11-30] MEDS: LORazepam 2MG/ML-1ML VIAL IV PRN ×2 (04:00→21:08)
[2021-11-30 04:47] VITALS: BP 166/72
[2021-11-30] MEDS: InsuLIN REG 1unit/0.01ml Soln (100units/ml) SC SCH ×4 (06:00→18:00)
[2021-11-30] MEDS ORDERED: SODIUM CHL 0.9% 1000 ML BAG XX ONE (07:00)
[2021-11-30 08:00] VITALS: BP 145/77
[2021-11-30] MEDS ORDERED: CLINDAMYCIN 600 MG/4 ML VL IM SCH (10:30)
[2021-11-30] MEDS: NICOTINE 21MG/24 HR TOPICAL PATCH TD SCH (10:58)
[2021-11-30] MEDS: DOCUSATE SOD 100 MG CAP PO SCH ×2 (10:59→21:27)
[2021-11-30] MEDS: HEPARIN SODIUM (PORCINE) 5000 UNITS/ML 1ML VIAL SC SCH ×2 (11:00→21:26)
[2021-11-30 12:38] VITALS: BP 156/79
[2021-11-30 14:04] VITALS: BP 158/81
[2021-11-30] MEDS: CLINDAMYCIN 300MG IV 50 ML IV SCH ×2 (14:44→21:08)
[2021-11-30] MEDS: AMPICILLIN & SULBACTAM SODIUM 3 GM in SODIUM CHL 0.9% 100 ML IV SCH (14:44)
[2021-11-30 16:17] VITALS: BP 120/74
[2021-11-30 19:00] VITALS: BP 175/88
[2021-11-30] MEDS ORDERED: EPOETIN ALFA-EPBX 4,000 UNIT/ML VIAL SC ONE (21:00)
[2021-12-01] MEDS: CLINDAMYCIN 300MG IV 50 ML IV SCH ×3 (05:53→23:46)
[2021-12-01] MEDS: LORazepam 2MG/ML-1ML VIAL IV PRN (05:54)
[2021-12-01] MEDS: ACCU-CHEK COMFORT CURVE STRIP VI SCH ×4 (05:55→18:13)
[2021-12-01] MEDS: InsuLIN REG 1unit/0.01ml Soln (100units/ml) SC SCH ×4 (06:00→18:00)
[2021-12-01 09:00] VITALS: BP 134/110
[2021-12-01] MEDS: HEPARIN SODIUM (PORCINE) 5000 UNITS/ML 1ML VIAL SC SCH ×2 (09:33→22:00)
[2021-12-01] MEDS: NICOTINE 21MG/24 HR TOPICAL PATCH TD SCH (09:34)
[2021-12-01] MEDS: DOCUSATE SOD 100 MG CAP PO SCH ×2 (09:58→22:00)
[2021-12-01] MEDS ORDERED: LORazepam 2MG/ML-1ML VIAL IV ONE (11:00)
[2021-12-01 12:02] VITALS: BP 93/48
[2021-12-01] MEDS: AMPICILLIN & SULBACTAM SODIUM 3 GM in SODIUM CHL 0.9% 100 ML IV SCH (14:15)
[2021-12-01 17:00] VITALS: BP 175/87
[2021-12-01] MEDS ORDERED: LIDOCAINE 1% (LOCAL ANESTH.) PF 5ml SDV ID ONE (17:30)
[2021-12-01 21:59] VITALS: BP 139/80
[2021-12-01 22:09] LABS: Basophils # (auto) 0.1 10 ^3/uL (0-0.2); Basophils % (auto) 3.2 % (0.0-2.0); Eosinophils # (auto) 0 10 ^3/uL (0-0.8); Eosinophils % (auto) 0.2 % (0.0-7.0); Hematocrit 29.4 % (41.0-53.0); Hemoglobin 9.6 g/dL (13.5-17.5); Lymphocytes # (auto) 0.9 10 ^3/uL (0.4-5.4); Lymphocytes % (auto) 19.2 % (10.0-50.0); Mean Corpuscular Hemoglobin 27.3 pg (28.0-32.0); Mean Corpuscular Hgb Conc. 32.4 g/dL (32.0-36.0); Mean Corpuscular Volume 84.2 fL (80.0-100.0); Monocytes # (auto) 0.3 10 ^3/uL (0-1.3); Monocytes % (auto) 7.7 % (0.0-12.0); Neutrophils # (auto) 3.1 10 ^3/uL (1.6-8.6); Neutrophils % (auto) 69.7 % (37.0-80.0); Nucleated Red Blood Cells % 0.2 %; Red Cell Distribution Width 14.3 % (11.8-14.3); White Blood Cell 4.5 10^3/uL (4.4-10.8)
[2021-12-01] MEDS: SODIUM CHLOR 0.9% PF (SALINE LOCK) 10ML VIAL/SYR IV SCH (23:46)
[2021-12-02] MEDS: MORPHINE SULFATE INJ 2 MG/ml SYRG IV PRN (00:22)
[2021-12-02] MEDS: ACCU-CHEK COMFORT CURVE STRIP VI SCH ×4 (00:23→18:00)
[2021-12-02 05:00] VITALS: BP 171/85
[2021-12-02] MEDS: InsuLIN REG 1unit/0.01ml Soln (100units/ml) SC SCH ×4 (05:21→18:00)
[2021-12-02] MEDS ORDERED: SODIUM CHL 0.9% 1000 ML BAG XX ONE (07:00)
[2021-12-02 09:00] VITALS: BP 118/72
[2021-12-02] MEDS: SODIUM CHLOR 0.9% PF (SALINE LOCK) 10ML VIAL/SYR IV SCH ×2 (10:18→22:05)
[2021-12-02] MEDS: DOCUSATE SOD 100 MG CAP PO SCH ×2 (10:18→22:00)
[2021-12-02] MEDS: CLINDAMYCIN 300MG IV 50 ML IV SCH ×3 (10:18→22:05)
[2021-12-02] MEDS: NICOTINE 21MG/24 HR TOPICAL PATCH TD SCH (10:18)
[2021-12-02] MEDS: HEPARIN SODIUM (PORCINE) 5000 UNITS/ML 1ML VIAL SC SCH ×2 (10:19→22:00)
[2021-12-02 13:00] VITALS: BP 100/60
[2021-12-02] MEDS: AMPICILLIN & SULBACTAM SODIUM 3 GM in SODIUM CHL 0.9% 100 ML IV SCH (14:36)
[2021-12-02 17:00] VITALS: BP 133/56
[2021-12-02] MEDS ORDERED: EPOETIN ALFA-EPBX 4,000 UNIT/ML VIAL SC ONE (21:00)
[2021-12-02 22:00] VITALS: BP 208/95
[2021-12-02] MEDS: cloNIDine HCL 0.1 MG TAB PO PRN (22:29)
[2021-12-03] MEDS: LORazepam 2MG/ML-1ML VIAL IV PRN (01:46)
[2021-12-03 05:00] VITALS: BP 168/83
[2021-12-03] MEDS: ACCU-CHEK COMFORT CURVE STRIP VI SCH ×5 (05:10→23:57)
[2021-12-03] MEDS: InsuLIN REG 1unit/0.01ml Soln (100units/ml) SC SCH ×5 (05:10→23:57)
[2021-12-03] MEDS: CLINDAMYCIN 300MG IV 50 ML IV SCH ×3 (05:10→20:20)
[2021-12-03 08:00] VITALS: BP 114/67
[2021-12-03 09:00] VITALS: BP 114/67
[2021-12-03] MEDS: DOCUSATE SOD 100 MG CAP PO SCH ×2 (10:00→20:20)
[2021-12-03] MEDS: SODIUM CHLOR 0.9% PF (SALINE LOCK) 10ML VIAL/SYR IV SCH ×2 (10:40→20:20)
[2021-12-03] MEDS: NICOTINE 21MG/24 HR TOPICAL PATCH TD SCH (10:41)
[2021-12-03] MEDS: HEPARIN SODIUM (PORCINE) 5000 UNITS/ML 1ML VIAL SC SCH ×2 (10:41→20:49)
[2021-12-03] MEDS: AMPICILLIN & SULBACTAM SODIUM 3 GM in SODIUM CHL 0.9% 100 ML IV SCH (12:12)
[2021-12-03 13:00] VITALS: BP 145/76
[2021-12-03 17:00] VITALS: BP 196/89
[2021-12-03] MEDS: cloNIDine HCL 0.1 MG TAB PO PRN (17:33)
[2021-12-03 22:00] VITALS: BP 155/78
[2021-12-04] VITALS (27 sets, daily range): BP systolic 96–175; BP diastolic 52–84
[2021-12-04] MEDS: InsuLIN REG 1unit/0.01ml Soln (100units/ml) SC SCH ×4 (06:00→23:35)
[2021-12-04] MEDS: cloNIDine HCL 0.1 MG TAB PO PRN (06:38)
[2021-12-04] MEDS: ACCU-CHEK COMFORT CURVE STRIP VI SCH ×4 (06:39→23:35)
[2021-12-04] MEDS: CLINDAMYCIN 300MG IV 50 ML IV SCH ×3 (06:39→21:10)
[2021-12-04] MEDS: LORazepam 2MG/ML-1ML VIAL IV PRN (08:38)
[2021-12-04] MEDS: hydrALAZINE HCL 20 MG/ML VL IV PRN (08:38)
[2021-12-04] MEDS: DOCUSATE SOD 100 MG CAP PO SCH ×2 (09:32→21:00)
[2021-12-04] MEDS: SODIUM CHLOR 0.9% PF (SALINE LOCK) 10ML VIAL/SYR IV SCH ×2 (09:32→21:11)
[2021-12-04] MEDS: NICOTINE 21MG/24 HR TOPICAL PATCH TD SCH (09:35)
[2021-12-04] MEDS: amLODIPine BESYLATE 5 MG TAB PO SCH (09:36)
[2021-12-04] MEDS: HEPARIN SODIUM (PORCINE) 5000 UNITS/ML 1ML VIAL SC SCH ×2 (09:36→21:00)
[2021-12-04] MEDS ORDERED: PHENYTOIN IV DILANTIN 1,000 MG in SODIUM CHL 0.9% 250 ML IV ONE (11:30)
[2021-12-04 12:24] LABS: Basophils # (auto) 0 10 ^3/uL (0-0.2); Basophils % (auto) 0.2 % (0.0-2.0); Eosinophils # (auto) 0 10 ^3/uL (0-0.8); Eosinophils % (auto) 0.1 % (0.0-7.0); Hematocrit 29.6 % (41.0-53.0); Hemoglobin 9.6 g/dL (13.5-17.5); Lymphocytes # (auto) 0.6 10 ^3/uL (0.4-5.4); Lymphocytes % (auto) 8.3 % (10.0-50.0); Mean Corpuscular Hemoglobin 27.5 pg (28.0-32.0); Mean Corpuscular Hgb Conc. 32.4 g/dL (32.0-36.0); Mean Corpuscular Volume 84.8 fL (80.0-100.0); Monocytes # (auto) 0.4 10 ^3/uL (0-1.3); Neutrophils # (auto) 6.3 10 ^3/uL (1.6-8.6); Neutrophils % (auto) 86.4 % (37.0-80.0); Nucleated Red Blood Cells % 0.1 %; Red Blood Cells 3.49 10^6/uL (4.5-5.90); Red Cell Distribution Width 15.1 % (11.8-14.3); White Blood Cell 7.3 10^3/uL (4.4-10.8)
[2021-12-04 12:40] LABS: Albumin 2.7 g/dL (3.4-5.0); BUN/Creatinine Ratio 5.7; Calcium 7.7 mg/dL (8.5-10.1); Potassium 3.2 mmol/L (3.5-5.1)
[2021-12-04 12:43] LABS: Bilirubin, Total 0.4 mg/dL (0.2-1.0); Total Protein 7.2 g/dL (6.4-8.2)
[2021-12-04] MEDS: AMPICILLIN & SULBACTAM SODIUM 3 GM in SODIUM CHL 0.9% 100 ML IV SCH (12:47)
[2021-12-04] MEDS ORDERED: ONDANSETRON HCL 4 MG/2 ML VIAL IV PRN (15:20)
[2021-12-04] MEDS ORDERED: ONDANSETRON HCL 4 MG/2 ML VIAL ONE (15:38)
[2021-12-04] MEDS ORDERED: MIDAZOLAM HCL 2MG/2ML 2ml VIAL (1mg/ml) ONE (16:03)
[2021-12-04] MEDS ORDERED: ETOMIDATE (2MG/ML) 20ML VIAL IV ONE (16:03)
[2021-12-04] MEDS ORDERED: SUCCINYLCHOLINE CHLORIDE 20 MG/ML 10ML VIAL IV ONE (16:04)
[2021-12-04] MEDS ORDERED: MIDAZOLAM DRIP 50 mg/50mL 50 ML IV ONE ×2 (16:06→16:43)
[2021-12-04] MEDS ORDERED: PROPOFOL 100 ML IV ONE (16:20)
[2021-12-04] MEDS ORDERED: LORazepam 2MG/ML-1ML VIAL IV PRN (16:45)
[2021-12-04] MEDS: NOREPINEPHRINE 8 MG/250ML KIT 250 ML IV SCH (17:15)
[2021-12-04] MEDS: MIDAZOLAM DRIP 50 mg/50mL 50 ML IV SCH ×2 (17:25→21:45)
[2021-12-04] MEDS: PROPOFOL 100 ML IV SCH (17:26)
[2021-12-05] VITALS (95 sets, daily range): BP systolic 94–157; BP diastolic 34–69
[2021-12-05] MEDS: PROPOFOL 100 ML IV SCH ×2 (01:04→22:04)
[2021-12-05] MEDS: MIDAZOLAM DRIP 50 mg/50mL 50 ML IV SCH ×6 (02:45→19:30)
[2021-12-05] MEDS: CLINDAMYCIN 300MG IV 50 ML IV SCH ×3 (05:01→21:58)
[2021-12-05] MEDS: ACCU-CHEK COMFORT CURVE STRIP VI SCH ×4 (05:04→23:48)
[2021-12-05] MEDS: InsuLIN REG 1unit/0.01ml Soln (100units/ml) SC SCH ×4 (05:04→23:48)
[2021-12-05 05:31] LABS: Basophils # (auto) 0 10 ^3/uL (0-0.2); Basophils % (auto) 0.3 % (0.0-2.0); Eosinophils # (auto) 0 10 ^3/uL (0-0.8); Eosinophils % (auto) 0.2 % (0.0-7.0); Hemoglobin 8.4 g/dL (13.5-17.5); Lymphocytes # (auto) 1.6 10 ^3/uL (0.4-5.4); Monocytes # (auto) 0.4 10 ^3/uL (0-1.3); Neutrophils # (auto) 4.5 10 ^3/uL (1.6-8.6); White Blood Cell 6.6 10^3/uL (4.4-10.8)
[2021-12-05 05:32] LABS: Hematocrit 25.3 % (41.0-53.0); Lymphocytes % (auto) 24.7 % (10.0-50.0); Mean Corpuscular Hemoglobin 28.1 pg (28.0-32.0); Mean Corpuscular Hgb Conc. 33.4 g/dL (32.0-36.0); Mean Corpuscular Volume 84.3 fL (80.0-100.0); Monocytes % (auto) 6.4 % (0.0-12.0); Neutrophils % (auto) 68.4 % (37.0-80.0); Nucleated Red Blood Cells % 0.1 %; Red Cell Distribution Width 15.5 % (11.8-14.3)
[2021-12-05 05:53] LABS: Albumin 2.4 g/dL (3.4-5.0); Bilirubin, Total 0.4 mg/dL (0.2-1.0); Calcium 7.5 mg/dL (8.5-10.1); Total Protein 6.6 g/dL (6.4-8.2)
[2021-12-05 05:58] LABS: INR 1.06 (0.9-1.15); Partial Thromboplastin Time 26.1 sec (23.6-33.0)
[2021-12-05 06:05] LABS: Potassium 2.7 mmol/L (3.5-5.1)
[2021-12-05] MEDS ORDERED: SODIUM CHL 0.9% 1000 ML BAG XX ONE ×2 (07:00→07:30)
[2021-12-05] MEDS ORDERED: POTASSIUM CHL 20MEQ/100ML 200 ML IV ONE (07:02)
[2021-12-05] MEDS: ALBUMIN 25% 100 ML IV PRN ×2 (08:05→09:05)
[2021-12-05] MEDS: DOCUSATE SOD 100 MG CAP PO SCH ×2 (09:28→21:58)
[2021-12-05] MEDS: amLODIPine BESYLATE 5 MG TAB PO SCH (09:32)
[2021-12-05] MEDS: NICOTINE 21MG/24 HR TOPICAL PATCH TD SCH (09:45)
[2021-12-05] MEDS: SODIUM CHLOR 0.9% PF (SALINE LOCK) 10ML VIAL/SYR IV SCH ×2 (09:45→21:58)
[2021-12-05] MEDS: AMPICILLIN & SULBACTAM SODIUM 3 GM in SODIUM CHL 0.9% 100 ML IV SCH (12:48)
[2021-12-05] MEDS: POTASSIUM CHL 20MEQ/100ML 100 ML IV SCH ×2 (15:55→18:06)
[2021-12-05] MEDS: NOREPINEPHRINE 8 MG/250ML KIT 250 ML IV SCH (17:15)
[2021-12-05] MEDS ORDERED: EPOETIN ALFA-EPBX 4,000 UNIT/ML VIAL SC ONE (21:00)
[2021-12-05] MEDS: PANTOPRAZOLE 40 MG/10 ML VIAL INJ IV SCH (21:33)
[2021-12-06] VITALS (99 sets, daily range): BP systolic 117–182; BP diastolic 55–87
[2021-12-06] MEDS: MIDAZOLAM DRIP 50 mg/50mL 50 ML IV SCH ×6 (02:44→23:25)
[2021-12-06 04:07] LABS: Basophils # (auto) 0 10 ^3/uL (0-0.2); Eosinophils # (auto) 0 10 ^3/uL (0-0.8); Hemoglobin 9.1 g/dL (13.5-17.5); Monocytes # (auto) 0.5 10 ^3/uL (0-1.3)
[2021-12-06 04:16] LABS: Basophils % (auto) 0.3 % (0.0-2.0); Eosinophils % (auto) 0.2 % (0.0-7.0); Hematocrit 27.5 % (41.0-53.0); Lymphocytes % (auto) 13.1 % (10.0-50.0); Mean Corpuscular Hemoglobin 28.1 pg (28.0-32.0); Neutrophils # (auto) 6.2 10 ^3/uL (1.6-8.6); Neutrophils % (auto) 80.4 % (37.0-80.0); Red Blood Cells 3.23 10^6/uL (4.5-5.90); White Blood Cell 7.7 10^3/uL (4.4-10.8)
[2021-12-06 04:20] LABS: Albumin 3.3 g/dL (3.4-5.0); Calcium 7.7 mg/dL (8.5-10.1); Potassium 3.4 mmol/L (3.5-5.1)
[2021-12-06 04:23] LABS: BUN/Creatinine Ratio 4.4; Bilirubin, Total 0.5 mg/dL (0.2-1.0); Total Protein 7.5 g/dL (6.4-8.2)
[2021-12-06] MEDS: CLINDAMYCIN 300MG IV 50 ML IV SCH (05:51)
[2021-12-06] MEDS: ACCU-CHEK COMFORT CURVE STRIP VI SCH ×4 (05:52→23:48)
[2021-12-06] MEDS: InsuLIN REG 1unit/0.01ml Soln (100units/ml) SC SCH ×3 (06:00→17:54)
[2021-12-06] MEDS: hydrALAZINE HCL 20 MG/ML VL IV PRN ×4 (06:12→23:49)
[2021-12-06] MEDS: PANTOPRAZOLE 40 MG/10 ML VIAL INJ IV SCH ×2 (09:47→22:06)
[2021-12-06] MEDS: amLODIPine BESYLATE 5 MG TAB PO SCH (09:47)
[2021-12-06] MEDS: NICOTINE 21MG/24 HR TOPICAL PATCH TD SCH (09:48)
[2021-12-06] MEDS: DOCUSATE SOD 100 MG CAP PO SCH ×2 (09:49→22:00)
[2021-12-06] MEDS: SODIUM CHLOR 0.9% PF (SALINE LOCK) 10ML VIAL/SYR IV SCH ×2 (09:49→22:06)
[2021-12-06] MEDS: AMPICILLIN & SULBACTAM SODIUM 3 GM in SODIUM CHL 0.9% 100 ML IV SCH (12:29)
[2021-12-06] MEDS: NOREPINEPHRINE 8 MG/250ML KIT 250 ML IV SCH (17:15)
[2021-12-06] MEDS: cloNIDine HCL 0.1 MG TAB PO PRN (22:28)
[2021-12-07] VITALS (104 sets, daily range): BP systolic 92–181; BP diastolic 58–99
[2021-12-07] MEDS: MIDAZOLAM DRIP 50 mg/50mL 50 ML IV SCH ×5 (03:35→20:15)
[2021-12-07 05:00] LABS: Basophils # (auto) 0 10 ^3/uL (0-0.2); Basophils % (auto) 0.2 % (0.0-2.0); Eosinophils # (auto) 0 10 ^3/uL (0-0.8); Eosinophils % (auto) 0.2 % (0.0-7.0); Hematocrit 29.8 % (41.0-53.0); Hemoglobin 9.6 g/dL (13.5-17.5); Lymphocytes % (auto) 10.3 % (10.0-50.0); Mean Corpuscular Hemoglobin 27.5 pg (28.0-32.0); Mean Corpuscular Hgb Conc. 32.2 g/dL (32.0-36.0); Mean Corpuscular Volume 85.6 fL (80.0-100.0); Monocytes # (auto) 0.5 10 ^3/uL (0-1.3); Monocytes % (auto) 5.1 % (0.0-12.0); Neutrophils # (auto) 8.5 10 ^3/uL (1.6-8.6); Neutrophils % (auto) 84.2 % (37.0-80.0); Nucleated Red Blood Cells % 0.1 %; Red Blood Cells 3.48 10^6/uL (4.5-5.90); Red Cell Distribution Width 16.3 % (11.8-14.3); White Blood Cell 10.1 10^3/uL (4.4-10.8)
[2021-12-07 05:19] LABS: Albumin 3.1 g/dL (3.4-5.0); Calcium 8.1 mg/dL (8.5-10.1); Potassium 3.4 mmol/L (3.5-5.1)
[2021-12-07 05:26] LABS: BUN/Creatinine Ratio 4.2; Bilirubin, Total 0.5 mg/dL (0.2-1.0); Total Protein 7.6 g/dL (6.4-8.2)
[2021-12-07] MEDS: InsuLIN REG 1unit/0.01ml Soln (100units/ml) SC SCH ×4 (06:00→18:00)
[2021-12-07] MEDS: ACCU-CHEK COMFORT CURVE STRIP VI SCH ×3 (06:27→18:06)
[2021-12-07] MEDS ORDERED: SODIUM CHL 0.9% 1000 ML BAG XX ONE (07:00)
[2021-12-07] MEDS: amLODIPine BESYLATE 5 MG TAB PO SCH (07:58)
[2021-12-07] MEDS: DOCUSATE SOD 100 MG CAP PO SCH ×2 (08:01→22:00)
[2021-12-07] MEDS: SODIUM CHLOR 0.9% PF (SALINE LOCK) 10ML VIAL/SYR IV SCH ×2 (09:29→22:08)
[2021-12-07] MEDS: PANTOPRAZOLE 40 MG/10 ML VIAL INJ IV SCH ×2 (09:29→22:07)
[2021-12-07] MEDS: NICOTINE 21MG/24 HR TOPICAL PATCH TD SCH (09:30)
[2021-12-07] MEDS: AMPICILLIN & SULBACTAM SODIUM 3 GM in SODIUM CHL 0.9% 100 ML IV SCH (11:59)
[2021-12-07] MEDS: PROPOFOL 100 ML IV SCH (14:00)
[2021-12-07] MEDS: NOREPINEPHRINE 8 MG/250ML KIT 250 ML IV SCH (17:15)
[2021-12-07] MEDS: cloNIDine HCL 0.1 MG TAB PO PRN (18:06)
[2021-12-08] VITALS (65 sets, daily range): BP systolic 93–171; BP diastolic 33–89
[2021-12-08] MEDS: MIDAZOLAM DRIP 50 mg/50mL 50 ML IV SCH ×6 (00:25→21:15)
[2021-12-08] MEDS: ACCU-CHEK COMFORT CURVE STRIP VI SCH ×4 (01:19→17:11)
[2021-12-08 05:20] LABS: Calcium 8.3 mg/dL (8.5-10.1); Potassium 3.9 mmol/L (3.5-5.1)
[2021-12-08] MEDS: InsuLIN REG 1unit/0.01ml Soln (100units/ml) SC SCH ×4 (05:41→17:12)
[2021-12-08] MEDS: DOCUSATE SOD 100 MG CAP PO SCH ×2 (08:51→22:00)
[2021-12-08] MEDS ORDERED: cefTRIAXone 1GM/50ML D5W 50 ML IV SCH (09:00)
[2021-12-08] MEDS: SODIUM CHLOR 0.9% PF (SALINE LOCK) 10ML VIAL/SYR IV SCH ×2 (09:48→22:08)
[2021-12-08] MEDS: PANTOPRAZOLE 40 MG/10 ML VIAL INJ IV SCH ×2 (09:48→22:08)
[2021-12-08] MEDS: NICOTINE 21MG/24 HR TOPICAL PATCH TD SCH (09:48)
[2021-12-08] MEDS: amLODIPine BESYLATE 5 MG TAB PO SCH (09:49)
[2021-12-08] MEDS: PROPOFOL 100 ML IV SCH ×2 (11:32→20:21)
[2021-12-08] MEDS: AMPICILLIN & SULBACTAM SODIUM 3 GM in SODIUM CHL 0.9% 100 ML IV SCH (11:45)
[2021-12-08] MEDS ORDERED: FLUCONAZOLE 200MG/100ML 100 ML IV PRN (14:00)
[2021-12-08] MEDS: FLUCONAZOLE 200MG/100ML 100 ML IV SCH (14:43)
[2021-12-08] MEDS: NOREPINEPHRINE 8 MG/250ML KIT 250 ML IV SCH (17:11)
[2021-12-08] MEDS ORDERED: levoFLOXacin 500MG 100 ML IV ONE (20:00)
[2021-12-09] VITALS (89 sets, daily range): BP systolic 113–183; BP diastolic 58–91
[2021-12-09] MEDS: ACCU-CHEK COMFORT CURVE STRIP VI SCH ×4 (00:23→18:29)
[2021-12-09] MEDS: MIDAZOLAM DRIP 50 mg/50mL 50 ML IV SCH ×5 (01:25→22:15)
[2021-12-09] MEDS: PROPOFOL 100 ML IV SCH ×2 (02:02→05:15)
[2021-12-09] MEDS: hydrALAZINE HCL 20 MG/ML VL IV PRN ×3 (03:12→18:30)
[2021-12-09] MEDS: InsuLIN REG 1unit/0.01ml Soln (100units/ml) SC SCH ×4 (06:00→18:00)
[2021-12-09] MEDS ORDERED: SODIUM CHL 0.9% 1000 ML BAG XX ONE (06:00)
[2021-12-09] MEDS: DOCUSATE SOD 100 MG CAP PO SCH ×2 (07:29→21:57)
[2021-12-09] MEDS: levoFLOXacin 500MG 100 ML IV SCH (09:10)
[2021-12-09] MEDS ORDERED: FLUCONAZOLE 200MG/100ML 100 ML IV SCH (10:00)
[2021-12-09] MEDS: PANTOPRAZOLE 40 MG/10 ML VIAL INJ IV SCH ×2 (10:18→21:57)
[2021-12-09] MEDS: SODIUM CHLOR 0.9% PF (SALINE LOCK) 10ML VIAL/SYR IV SCH ×2 (10:18→21:57)
[2021-12-09] MEDS: amLODIPine BESYLATE 5 MG TAB PO SCH (10:18)
[2021-12-09] MEDS: NICOTINE 21MG/24 HR TOPICAL PATCH TD SCH (10:19)
[2021-12-09] MEDS ORDERED: LORazepam 2MG/ML-1ML VIAL IV PRN (11:00)
[2021-12-09] MEDS: AMPICILLIN & SULBACTAM SODIUM 3 GM in SODIUM CHL 0.9% 100 ML IV SCH (12:14)
[2021-12-09] MEDS ORDERED: MORPHINE SULFATE INJ 2 MG/ml SYRG IV ONE (12:15)
[2021-12-09] MEDS: FLUCONAZOLE 200MG/100ML 100 ML IV SCH (14:43)
[2021-12-09] MEDS: NOREPINEPHRINE 8 MG/250ML KIT 250 ML IV SCH (16:55)
[2021-12-10] VITALS (39 sets, daily range): BP systolic 134–195; BP diastolic 58–88
[2021-12-10] MEDS: ACCU-CHEK COMFORT CURVE STRIP VI SCH ×5 (00:19→23:40)
[2021-12-10] MEDS: MIDAZOLAM DRIP 50 mg/50mL 50 ML IV SCH (02:25)
[2021-12-10] MEDS: hydrALAZINE HCL 20 MG/ML VL IV PRN ×2 (03:14→09:54)
[2021-12-10] MEDS: InsuLIN REG 1unit/0.01ml Soln (100units/ml) SC SCH ×5 (05:59→23:40)
[2021-12-10] MEDS: amLODIPine BESYLATE 5 MG TAB PO SCH (08:46)
[2021-12-10] MEDS: DOCUSATE SOD 100 MG CAP PO SCH ×2 (08:46→22:00)
[2021-12-10] MEDS: NICOTINE 21MG/24 HR TOPICAL PATCH TD SCH (09:51)
[2021-12-10] MEDS: SODIUM CHLOR 0.9% PF (SALINE LOCK) 10ML VIAL/SYR IV SCH ×2 (09:51→22:01)
[2021-12-10] MEDS: PANTOPRAZOLE 40 MG/10 ML VIAL INJ IV SCH ×2 (09:51→22:00)
[2021-12-10] MEDS: AMPICILLIN & SULBACTAM SODIUM 3 GM in SODIUM CHL 0.9% 100 ML IV SCH (11:37)
[2021-12-10] MEDS: FLUCONAZOLE 200MG/100ML 100 ML IV SCH (14:14)
[2021-12-10] MEDS ORDERED: levETIRAcetam 500 MG/5ML INJ IV ONE (21:58)
[2021-12-11] MEDS: hydrALAZINE HCL 20 MG/ML VL IV PRN (04:30)
[2021-12-11 04:57] VITALS: BP 181/90
[2021-12-11 05:41] VITALS: BP 152/81
[2021-12-11] MEDS: ACCU-CHEK COMFORT CURVE STRIP VI SCH ×4 (05:51→23:06)
[2021-12-11] MEDS: InsuLIN REG 1unit/0.01ml Soln (100units/ml) SC SCH ×4 (05:51→23:07)
[2021-12-11 08:00] VITALS: BP 188/85
[2021-12-11 08:01] LABS: Basophils # (auto) 0 10 ^3/uL (0-0.2); Basophils % (auto) 0.2 % (0.0-2.0); Eosinophils # (auto) 0.1 10 ^3/uL (0-0.8); Eosinophils % (auto) 1.4 % (0.0-7.0); Lymphocytes # (auto) 0.8 10 ^3/uL (0.4-5.4); Lymphocytes % (auto) 14.3 % (10.0-50.0); Mean Corpuscular Hemoglobin 28.3 pg (28.0-32.0); Mean Corpuscular Hgb Conc. 32.3 g/dL (32.0-36.0); Mean Corpuscular Volume 87.6 fL (80.0-100.0); Monocytes # (auto) 0.3 10 ^3/uL (0-1.3); Monocytes % (auto) 5.7 % (0.0-12.0); Neutrophils # (auto) 4.2 10 ^3/uL (1.6-8.6); Neutrophils % (auto) 78.4 % (37.0-80.0); Red Blood Cells 3.19 10^6/uL (4.5-5.90); Red Cell Distribution Width 16.3 % (11.8-14.3); White Blood Cell 5.4 10^3/uL (4.4-10.8)
[2021-12-11 09:17] LABS: Albumin 2.9 g/dL (3.4-5.0); Calcium 8.3 mg/dL (8.5-10.1); Potassium 3.6 mmol/L (3.5-5.1)
[2021-12-11 09:21] LABS: BUN/Creatinine Ratio 4.9; Bilirubin, Total 0.5 mg/dL (0.2-1.0); Total Protein 7.6 g/dL (6.4-8.2)
[2021-12-11] MEDS: DOCUSATE SOD 100 MG CAP PO SCH ×2 (09:46→21:35)
[2021-12-11] MEDS: levoFLOXacin 500MG 100 ML IV SCH (09:46)
[2021-12-11] MEDS: SODIUM CHLOR 0.9% PF (SALINE LOCK) 10ML VIAL/SYR IV SCH ×2 (09:46→22:46)
[2021-12-11] MEDS: PANTOPRAZOLE 40 MG/10 ML VIAL INJ IV SCH ×2 (09:46→22:38)
[2021-12-11] MEDS: amLODIPine BESYLATE 5 MG TAB PO SCH (09:47)
[2021-12-11] MEDS: NICOTINE 21MG/24 HR TOPICAL PATCH TD SCH (09:48)
[2021-12-11] MEDS ORDERED: FLUCONAZOLE 200MG/100ML 100 ML IV SCH (10:00)
[2021-12-11 13:00] VITALS: BP 149/94
[2021-12-11] MEDS: AMPICILLIN & SULBACTAM SODIUM 3 GM in SODIUM CHL 0.9% 100 ML IV SCH (16:24)
[2021-12-11] MEDS: FLUCONAZOLE 200MG/100ML 100 ML IV SCH (16:25)
[2021-12-11 17:00] VITALS: BP 159/91
[2021-12-11 22:00] VITALS: BP 140/80
[2021-12-11] MEDS: CARVEDILOL 12.5 MG TAB PO SCH (22:42)
[2021-12-11] MEDS: cloNIDine HCL 0.1 MG TAB PO PRN (23:39)
[2021-12-12 00:40] VITALS: BP 134/79
[2021-12-12 05:00] VITALS: BP 139/76
[2021-12-12] MEDS: ACCU-CHEK COMFORT CURVE STRIP VI SCH ×3 (06:00→16:45)
[2021-12-12] MEDS: InsuLIN REG 1unit/0.01ml Soln (100units/ml) SC SCH ×3 (06:00→16:44)
[2021-12-12] MEDS ORDERED: SODIUM CHL 0.9% 1000 ML BAG XX ONE (07:00)
[2021-12-12] MEDS: SODIUM CHLOR 0.9% PF (SALINE LOCK) 10ML VIAL/SYR IV SCH ×2 (09:51→21:45)
[2021-12-12] MEDS: NICOTINE 21MG/24 HR TOPICAL PATCH TD SCH (09:57)
[2021-12-12] MEDS: DOCUSATE SOD 100 MG CAP PO SCH ×2 (09:58→21:45)
[2021-12-12] MEDS: PANTOPRAZOLE 40 MG/10 ML VIAL INJ IV SCH ×2 (10:00→21:45)
[2021-12-12] MEDS: AMPICILLIN & SULBACTAM SODIUM 3 GM in SODIUM CHL 0.9% 100 ML IV SCH (10:01)
[2021-12-12] MEDS: CARVEDILOL 12.5 MG TAB PO SCH ×2 (10:03→22:09)
[2021-12-12] MEDS: NIFEdipine ER 30 MG TAB PO SCH (10:03)
[2021-12-12] MEDS: hydrALAZINE HCL 20 MG/ML VL IV PRN (10:06)
[2021-12-12] MEDS: FLUCONAZOLE 200MG/100ML 100 ML IV SCH (12:18)
[2021-12-12] MEDS ORDERED: EPOETIN ALFA-EPBX 4,000 UNIT/ML VIAL SC ONE (21:00)
[2021-12-12 21:44] VITALS: BP 156/87
[2021-12-13 04:11] VITALS: BP 148/82
[2021-12-13] MEDS: InsuLIN REG 1unit/0.01ml Soln (100units/ml) SC SCH ×4 (06:00→18:00)
[2021-12-13] MEDS: ACCU-CHEK COMFORT CURVE STRIP VI SCH ×4 (06:01→18:09)
[2021-12-13 09:22] VITALS: BP 142/70
[2021-12-13] MEDS: levoFLOXacin 500MG 100 ML IV SCH (09:42)
[2021-12-13] MEDS: PANTOPRAZOLE 40 MG/10 ML VIAL INJ IV SCH ×2 (09:42→21:40)
[2021-12-13] MEDS: DOCUSATE SOD 100 MG CAP PO SCH ×2 (09:43→21:41)
[2021-12-13] MEDS: SODIUM CHLOR 0.9% PF (SALINE LOCK) 10ML VIAL/SYR IV SCH ×2 (09:43→21:40)
[2021-12-13] MEDS: CARVEDILOL 12.5 MG TAB PO SCH ×2 (09:43→21:41)
[2021-12-13] MEDS: NIFEdipine ER 30 MG TAB PO SCH (09:44)
[2021-12-13] MEDS: NICOTINE 21MG/24 HR TOPICAL PATCH TD SCH (09:45)
[2021-12-13] MEDS: AMPICILLIN & SULBACTAM SODIUM 3 GM in SODIUM CHL 0.9% 100 ML IV SCH (12:35)
[2021-12-13 12:52] VITALS: BP 161/77
[2021-12-13 16:56] VITALS: BP 121/62
[2021-12-13 21:43] VITALS: BP 152/80
[2021-12-14 05:00] VITALS: BP 155/76
[2021-12-14] MEDS: InsuLIN REG 1unit/0.01ml Soln (100units/ml) SC SCH ×4 (05:52→17:04)
[2021-12-14] MEDS: ACCU-CHEK COMFORT CURVE STRIP VI SCH ×4 (05:52→17:04)
[2021-12-14] MEDS ORDERED: SODIUM CHL 0.9% 1000 ML BAG XX ONE (07:00)
[2021-12-14 08:30] VITALS: BP 140/74
[2021-12-14] MEDS: PANTOPRAZOLE 40 MG/10 ML VIAL INJ IV SCH ×2 (09:24→21:45)
[2021-12-14] MEDS: DOCUSATE SOD 100 MG CAP PO SCH ×2 (09:25→21:46)
[2021-12-14] MEDS: NIFEdipine ER 30 MG TAB PO SCH (09:26)
[2021-12-14] MEDS: CARVEDILOL 12.5 MG TAB PO SCH ×2 (09:26→22:21)
[2021-12-14] MEDS: SODIUM CHLOR 0.9% PF (SALINE LOCK) 10ML VIAL/SYR IV SCH ×2 (09:27→21:46)
[2021-12-14] MEDS: NICOTINE 21MG/24 HR TOPICAL PATCH TD SCH (09:27)
[2021-12-14 15:30] VITALS: BP 144/70
[2021-12-14] MEDS ORDERED: EPOETIN ALFA-EPBX 4,000 UNIT/ML VIAL SC ONE (21:00)
[2021-12-14 21:51] VITALS: BP 156/89
[2021-12-15 05:00] VITALS: BP 133/68
[2021-12-15] MEDS: InsuLIN REG 1unit/0.01ml Soln (100units/ml) SC SCH ×4 (06:00→17:12)
[2021-12-15] MEDS: ACCU-CHEK COMFORT CURVE STRIP VI SCH ×4 (06:07→17:12)
[2021-12-15 08:06] VITALS: BP 138/64
[2021-12-15] MEDS: levoFLOXacin 500MG 100 ML IV SCH (08:45)
[2021-12-15] MEDS: CARVEDILOL 12.5 MG TAB PO SCH (09:59)
[2021-12-15] MEDS: DOCUSATE SOD 100 MG CAP PO SCH (10:00)
[2021-12-15] MEDS: NIFEdipine ER 30 MG TAB PO SCH (10:00)
[2021-12-15] MEDS: PANTOPRAZOLE 40 MG/10 ML VIAL INJ IV SCH (10:01)
[2021-12-15] MEDS: NICOTINE 21MG/24 HR TOPICAL PATCH TD SCH (10:01)
[2021-12-15] MEDS: SODIUM CHLOR 0.9% PF (SALINE LOCK) 10ML VIAL/SYR IV SCH (10:02)
[2021-12-15] MEDS ORDERED: LINE1TAB6 PO (11:49)
[2021-12-15] MEDS ORDERED: HYDR-4902 PO (11:49)
[2021-12-15 12:55] VITALS: BP 150/78
[2021-12-15 15:47] VITALS: BP 133/70
== END 2021-12-15 22:00 | disposition hospice, home (50) | DRG 870 ==
LOC: EDBD 11:10 → ER 11:10 → TELE 19:02 → TELE-WESTW 11-22 18:30 → DOU IN ICU 12-04 11:40 → ICU CENTRL 12-04 11:57 → ICU WEST 12-05 06:29 → TELE-EAST 12-10 15:22 → TELE-WESTW 12-11 12:28
PROVIDERS: ADMIT Registered Nurse; ATTEND Family Medicine
PROC: 5A1D70Z Performance of Urinary Filtration, Intermittent, Less than 6 Hours Per Day (ICD-10-PCS; 2021-11-28)
PROC: 5A1D70Z Performance of Urinary Filtration, Intermittent, Less than 6 Hours Per Day (ICD-10-PCS; 2021-11-30)
PROC: 5A1955Z Respiratory Ventilation, Greater than 96 Consecutive Hours (ICD-10-PCS; 2021-12-04)
PROC: 0BH17EZ Insertion of Endotracheal Airway into Trachea, Via Natural or Artificial Opening (ICD-10-PCS; 2021-12-04)
PROC: 5A1D70Z Performance of Urinary Filtration, Intermittent, Less than 6 Hours Per Day (ICD-10-PCS; principal; 2021-12-05)
PROC: 5A1D70Z Performance of Urinary Filtration, Intermittent, Less than 6 Hours Per Day (ICD-10-PCS; 2021-12-07)
PROC: 5A1D70Z Performance of Urinary Filtration, Intermittent, Less than 6 Hours Per Day (ICD-10-PCS; 2021-12-09)
PROC: 5A1D70Z Performance of Urinary Filtration, Intermittent, Less than 6 Hours Per Day (ICD-10-PCS; 2021-12-12)
PROC: 5A1D70Z Performance of Urinary Filtration, Intermittent, Less than 6 Hours Per Day (ICD-10-PCS; 2021-12-14)
DX: A41.2 Sepsis due to unspecified staphylococcus (principal); R65.21 Severe sepsis with septic shock; N18.6 End stage renal disease; J96.00 Acute respiratory failure, unspecified whether with hypoxia or hypercapnia; J12.82 Pneumonia due to coronavirus disease 2019; J96.01 Acute respiratory failure with hypoxia; U07.1 COVID-19; G93.41 Metabolic encephalopathy; N39.0 Urinary tract infection, site not specified; I24.9 Acute ischemic heart disease, unspecified; K92.2 Gastrointestinal hemorrhage, unspecified; L89.610 Pressure ulcer of right heel, unstageable; Y71.2 Prosthetic and other implants, materials and accessory cardiovascular devices associated with adverse incidents; D69.6 Thrombocytopenia, unspecified; E88.09 Other disorders of plasma-protein metabolism, not elsewhere classified; F03.90 Unspecified dementia, unspecified severity, without behavioral disturbance, psychotic disturbance, mood disturbance, and anxiety; E11.65 Type 2 diabetes mellitus with hyperglycemia; D63.8 Anemia in other chronic diseases classified elsewhere; D63.1 Anemia in chronic kidney disease; E11.621 Type 2 diabetes mellitus with foot ulcer; E78.5 Hyperlipidemia, unspecified; L97.519 Non-pressure chronic ulcer of other part of right foot with unspecified severity; I16.0 Hypertensive urgency; R56.9 Unspecified convulsions; F17.210 Nicotine dependence, cigarettes, uncomplicated; E03.9 Hypothyroidism, unspecified; Z89.512 Acquired absence of left leg below knee; Z86.73 Personal history of transient ischemic attack (TIA), and cerebral infarction without residual deficits; Z99.2 Dependence on renal dialysis; Z89.421 Acquired absence of other right toe(s); E11.40 Type 2 diabetes mellitus with diabetic neuropathy, unspecified
CPT/HCPCS: 36415; 36569; 36600; 70450; 71045; 74176; 80048; 80053; 80061; 80202; 80307; 80320; 81001; 82805; 82962; 83036; 83605; 84132; 84484; 85025; 85049; 85379; 85610; 85730; 87040; 87070; 87077; 87081; 87086; 87186; 87205; 87340; 90935; 92610; 93005; 94002; 94003; 94640; 95819; 96361; 96365; 96366; 96367; 96372; A4565; A4618; C9113; G0378; J0330; J0696; J1450; J1642; J1815; J1956; J2250; J2405; J2704; J3480; J3490; J7060; P9047